=== PATIENT | male | born 1945 | race Caucasian/White ===

== ENCOUNTER → 2017-05-25 | Outpatient (CLI) | payer OTHER, MEDICARE | LOC: BHFA 09:30 | PROVIDERS: ATTEND Internal Medicine Cardiovascular Disease | DX: I48.91 Unspecified atrial fibrillation (principal); R06.02 Shortness of breath; I63.9 Cerebral infarction, unspecified | CPT/HCPCS: 78452; 93017; A9500; J2785 ==

== ENCOUNTER → 2017-07-01 | Day surgery (SDC) | payer OTHER, MEDICARE ==
[~2017-07-01] MED LIST: ATROPINE SULFATE 1 MG/10 ML SYR IVP ONE; MIDAZOLAM 2 MG/2 ML VIAL IVP ONE; NS 500 ML IV ONE; fentaNYL 100 MCG/2 ML INJ IVP ONE
--- NOTE | 2017-07-01 06:46 | CPEKG ---
Heart Rate: 34 RR Interval: 1765 P-R Interval: 196 QRSD Interval: 84 QT Interval: 524 QTC Interval: 394 P [place]: 3 QRS [place]: 84 T Wave [place]: 71 EKG Severity - BORDERLINE ECG - EKG Impression: BRADYCARDIA WITH IRREGULAR RATE 31-38 EKG Impression: LOW VOLTAGE IN FRONTAL LEADS Electronically Signed By: Jeremías Hernandez 01-Jul-2017 13:06:22
--- NOTE | 2017-07-01 08:39 | CPIP ---
[f rep st] INVASIVE CARDIAC PROCEDURE ADDENDUM TO PREVIOUSLY DICTATED REPORT The patient is leaving the hospital. He has had some food at this point in time and is getting ready to go. He does not want to wait any longer. They understand that the concept we are working on that we do not want him to faint and injure himself because of this low heart rate. Also, we are going to follow him closely to see if he has significant conduction disease on his own that would require a pacemaker, independent of the beta-zaki. /[id number]/MODL [id number] ORIGINAL REPORT DATE OF PROCEDURE: 07/01/2017 Atrial fibrillation. Procedure was cardioversion. The patient came to the hospital for an elective cardioversion this morning. When he came to the hospital, he was found to be in sinus rhythm with rates of 41 to 45, and at times he would have a junctional escape rate of 32. His medication is Toprol 50 mg daily. He has been feeling tired at home since he started the Toprol. He is obviously not in atrial fibrillation at this time. He is careful when he is changing positions. He is feeling lightheaded. He is feeling a loss of energy for the last several days. I have offered to keep him in the hospital overnight to watch him. He took his last Toprol dose last night around 7 p.m. At this point in time, he does not want to stay in the hospital. He is going to go home. We are going to feed him and watch him for another hour, have him walk around and see how he feels. His is with him and she understands the options of staying in the hospital overnight and is fine with him wanting to go home. They will take it easy this weekend, He will be very careful changing positions. He if he takes a nap or lies down, he is going to dangle his feet first for a minute and then he is going to stand up, and for a minute not walk, but stand up by the couch or by the bed and make sure he is not too lightheaded or dizzy, and then proceed to walking slowly. He is not going to exert himself. He is not going to be doing hot tubs. If he has any questions, they will come back and see us. He can come to the emergency room or call 911. He is going to call me on Tuesday morning in my office and tell them how he is feeling. If he is having ongoing troubles, we will see him. If he is improving, he will continue off the Toprol. Also, I discussed with him the future regarding his atrial fibrillation. If he goes into atrial fibrillation with a rapid ventricular response, then the future would most likely include a pacemaker so that we can continue him on drugs that will slow his atrial fibrillation and those drugs, but we will cross that bridge when we get to it. Obviously, we will need the data to know if that ever comes to pass or not, and it is not something to worry about right now. He is continuing on his full anticoagulation. All his questions have been answered. They are going to see me in 2-1/2 weeks in the office regardless. /[id number]/MODL MTDD
== END | disposition home or self-care (01) ==
LOC: FCATH 06:15
PROVIDERS: ATTEND Internal Medicine
DX: I48.91 Unspecified atrial fibrillation (principal); Z53.09 Procedure and treatment not carried out because of other contraindication

== ENCOUNTER 2017-08-10 16:03 | Inpatient (IN) | payer OTHER, MEDICARE ==
--- NOTE | 2017-08-10 16:57 | CPEKG ---
Heart Rate: 76 RR Interval: 789 P-R Interval: 216 QRSD Interval: 74 QT Interval: 400 QTC Interval: 450 QRS [place]: -75 T Wave [place]: 57 EKG Severity - ABNORMAL ECG - EKG Impression: ATRIAL-PACED COMPLEXES EKG Impression: VENTRICULAR PREMATURE COMPLEX Electronically Signed By: Ryne Murray 10-Aug-2017 17:16:44
[2017-08-10] MEDS ORDERED: NS 1,000 ML IV ONE (17:09)
--- NOTE | 2017-08-10 17:15 | EDPHY ---
H & P Stated Complaint: PACEMAKER 3 WKS AGO. WORSENING FATIGUE/DIZZINESS X 1 WK. Time Seen by Provider: 08/10/17 16:59 HPI/ROS: CHIEF COMPLAINT: Fatigue HISTORY OF PRESENT ILLNESS: The patient is a 72-year-old man with a history of atrial fibrillation on Xarelto with a [employer] pacemaker placed [address] Bennett. He reports that for the last week or so he has had increased fatigue and feels like he can sleep all of the time. No fevers. He has also had intermittent episodes of feeling dizzy and short of breath. These symptoms seem to last about an hour until he lays down to take a nap. After his nap he feels much better. He has had 2-3 of these this week. Today's episode was from 2 o'clock to 330 this afternoon. He is concerned about something being wrong with his pacemaker. He denies cough for sore throat. No abdominal pain, nausea, vomiting or diarrhea. No rashes. Denies having any history of coronary artery disease. He did have a stroke in April that he reports this completely resolved. REVIEW OF SYSTEMS: Constitutional: denies: chills, fever, recent illness, recent injury EENTM: denies: blurred vision, double vision, nose congestion Respiratory: denies: cough, shortness of breath Cardiac: denies: chest pain, irregular heart rate, lightheadedness, palpitations Gastrointestinal/Abdominal: denies: abdominal pain, diarrhea, nausea, vomiting, blood streaked stools Genitourinary: denies: dysuria, frequency, hematuria, pain Musculoskeletal: denies: joint pain, muscle pain Skin: denies: lesions, rash, jaundice, bruising Neurological: denies: headache, numbness, paresthesia, tingling, dizziness, weakness Hematologic/Lymphatic: denies: blood clots, easy bleeding, easy bruising Immunologic/allergic: denies: HIV/AIDS, transplant EXAM: GENERAL: Well-appearing, well-nourished and in no acute distress. HEAD: Atraumatic, normocephalic. EYES: Pupils equal round and reactive to light, extraocular movements intact, sclera anicteric, conjunctiva are normal. ENT: TMs normal, nares patent, oropharynx clear without exudates. Moist mucous membranes. NECK: Normal range of motion, supple without lymphadenopathy or JVD. LUNGS: Breath sounds clear to auscultation bilaterally and equal. No wheezes rales or rhonchi. HEART: Regular rate and rhythm without murmurs, rubs or gallops. ABDOMEN: Soft, nontender, normoactive bowel sounds. No guarding, no rebound. No masses appreciated. BACK: No CVA tenderness, no spinal tenderness, step-offs or deformities EXTREMITIES: Normal range of motion, no pitting or edema. No clubbing or cyanosis. NEUROLOGICAL: Cranial nerves II through XII grossly intact. Normal speech, normal gait. 5/5 strength, normal movement in all extremities, normal sensation PSYCH: Normal mood, normal affect. SKIN: Warm, dry, normal turgor, no visible rashes or lesions. 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, PACEMAKER, PROSTATE CA - Social History Smoking Status: Former smoker Constitutional: Initial Vital Signs Temperature (C) 36.8 C 08/10/17 16:05 Heart Rate 72 08/10/17 16:05 Respiratory Rate 16 08/10/17 16:05 Blood Pressure 142/77 H 08/10/17 16:05 O2 Sat (%) 91 L 08/10/17 16:05 O2 Delivery Mode Room Air Allergies/Adverse Reactions: No Known Allergies Allergy (Verified 08/10/17 16:05) Home Medications: Medication Instructions Recorded Citalopram [CeleXA 20 MG] 20 mg PO HS 03/27/10 Simvastatin [Zocor] 20 mg PO HS 03/27/10 traZODone [traZODone 150MG (*)] 450 mg PO HS PRN 03/27/10 Herbals/Supplements -Info Only 1 ea PO HS 07/21/17 Lisinopril/Hydrochlorothiazide 1 each PO HS 07/21/17 [Zestoretic 20-25 mg Tablet] Multivitamins [Multivitamin (*)] 1 each PO HS 07/21/17 Rivaroxaban [Xarelto 10mg (*)] 20 mg PO DAILY@18 07/21/17 Metoprolol Succinate Xr [Toprol Xl 50 mg PO HS 08/10/17 50 mg (*)] Medical Decision Making - Diagnostics EKG Interpretation: An EKG obtained and was read and documented in trace view. Please see trace view for full reading and report. Atrial paced rhythm with PVC, no acute ischemic changes Imaging Results: Imaging Impressions Chest X-Ray 08/10/17 17:10 Impression: 1. No active cardiopulmonary disease seen. 2. Stable fibrotic streaks or subsegmental atelectasis suspected at the lung bases. Imaging: Discussed imaging studies w/ call center operator Radiologist ED Course/Re-evaluation: The patient's lab work in x-rays are unremarkable . his pacemaker interrogation was also normal. He continues to feel fatigued. He occasionally desaturates to 85 while in bed. I suspect he may have sleep apnea. He is afebrile and does not have a white count. I recommended admission based on his symptoms. He and his agree with this plan. 7:35 p.m. the called me to the hallway in told me the patient has also been having memory problems for the last several weeks. She thinks that this predated the pacemaker and that he did have some his symptoms of lightheadedness and weakness prior to the pacemaker as well that they thought were bradycardia. She wonders if it is sequela from his stroke he had in April. He had left-sided weakness at that time that completely resolved after tPA. 7:40 p.m. I discussed the case with Dr. Bolanos who will admit. 7:45 p.m. I discussed the case with Dr. Andry Espinoza who will consult tomorrow. Differential Diagnosis: Partial list of the Differential diagnosis considered include but were not limited to; fatigue, presyncope, shortness of breath, anemia, arrhythmia and although unlikely based on the history and physical exam, I also considered infection, normal pressure hydrocephalus, anxiety, deconditioning. - Data Points Laboratory Results: Laboratory Results 08/10/17 17:32 08/10/17 17:32 08/10/17 08/10/17 08/10/17 18:44 18:30 17:32 WBC RBC Hgb Hct MCV MCH MCHC RDW Plt Count MPV Neut % (Auto) Lymph % (Auto) [place] % (Auto) Eos % (Auto) Baso % (Auto) Nucleat RBC Rel Count Absolute Neuts (auto) Absolute Lymphs (auto) Absolute Monos (auto) Absolute Eos (auto) Absolute Basos (auto) Absolute Nucleated RBC Immature Gran % Immature Gran # PT INR APTT D-Dimer VBG Lactic Acid Sodium Potassium Chloride Carbon Dioxide Anion Gap BUN Creatinine Estimated GFR Glucose Calcium Total Bilirubin Conjugated Bilirubin Unconjugated Bilirubin AST ALT Alkaline Phosphatase POC Troponin I 0.00 ng/mL ng/mL (0.00-0.08) Total Protein Albumin Lipase TSH 2.950 uIU/mL uIU/mL (0.465-4.680) Urine Color YELLOW Urine Appearance CLEAR Urine pH 5.0 (5.0-7.5) Ur Specific [place] 1.016 (1.002-1.030) Urine Protein NEGATIVE (NEGATIVE) Urine Ketones NEGATIVE (NEGATIVE) Urine Blood NEGATIVE (NEGATIVE) Urine Nitrate NEGATIVE (NEGATIVE) Urine Bilirubin NEGATIVE (NEGATIVE) Urine Urobilinogen NEGATIVE EU EU (0.2-1.0) Ur Leukocyte Esterase NEGATIVE (NEGATIVE) Urine Glucose NEGATIVE (NEGATIVE) 08/10/17 08/10/17 08/10/17 17:32 17:32 17:32 WBC RBC Hgb Hct MCV MCH MCHC RDW Plt Count MPV Neut % (Auto) Lymph % (Auto) [place] % (Auto) Eos % (Auto) Baso % (Auto) Nucleat RBC Rel Count Absolute Neuts (auto) Absolute Lymphs (auto) Absolute Monos (auto) Absolute Eos (auto) Absolute Basos (auto) Absolute Nucleated RBC Immature Gran % Immature Gran # PT 14.5 SEC SEC (12.0-15.0) INR 1.11 (0.83-1.16) APTT 30.8 SEC SEC (23.0-38.0) D-Dimer 0.37 ug/mLFEU ug/mLFEU (0.00-0.50) VBG Lactic Acid 1.2 mmol/L mmol/L (0.7-2.1) Sodium 139 mEq/L mEq/L (135-145) Potassium 4.0 mEq/L mEq/L (3.3-5.0) Chloride 97 mEq/L mEq/L (97-110) Carbon Dioxide 32 mEq/l H mEq/l (22-31) Anion Gap 10 mEq/L mEq/L (8-16) BUN 14 mg/dL mg/dL (7-23) Creatinine 0.9 mg/dL mg/dL (0.7-1.3) Estimated GFR > 60 Glucose 83 mg/dL mg/dL (70-100) Calcium 9.5 mg/dL mg/dL (8.5-10.4) Total Bilirubin 0.6 mg/dL mg/dL (0.1-1.4) Conjugated Bilirubin 0.4 mg/dL mg/dL (0.0-0.5) Unconjugated Bilirubin 0.2 mg/dL mg/dL (0.0-1.1) AST 30 IU/L IU/L (17-59) ALT 46 IU/L IU/L (21-72) Alkaline Phosphatase 46 IU/L IU/L (38-126) POC Troponin I Total Protein 7.0 g/dL g/dL (6.3-8.2) Albumin 4.0 g/dL g/dL (3.5-5.0) Lipase 139 IU/L IU/L (23-300) TSH Urine Color Urine Appearance Urine pH Ur Specific [place] Urine Protein Urine Ketones Urine Blood Urine Nitrate Urine Bilirubin Urine Urobilinogen Ur Leukocyte Esterase Urine Glucose 08/10/17 17:32 WBC 6.24 10^3/uL 10^3/uL (3.80-9.50) RBC 5.58 10^6/uL 10^6/uL (4.40-6.38) Hgb 16.7 g/dL g/dL (13.7-17.5) Hct 50.5 % % (40.0-51.0) MCV 90.5 fL fL (81.5-99.8) MCH 29.9 pg pg (27.9-34.1) MCHC 33.1 g/dL g/dL (32.4-36.7) RDW 13.6 % % (11.5-15.2) Plt Count 257 10^3/uL 10^3/uL (150-400) MPV 10.3 fL fL (8.7-11.7) Neut % (Auto) 57.6 % % (39.3-74.2) Lymph % (Auto) 24.5 % % (15.0-45.0) [place] % (Auto) 13.3 % H % (4.5-13.0) Eos % (Auto) 3.8 % % (0.6-7.6) Baso % (Auto) 0.5 % % (0.3-1.7) Nucleat RBC Rel Count 0.0 % % (0.0-0.2) Absolute Neuts (auto) 3.59 10^3/uL 10^3/uL (1.70-6.50) Absolute Lymphs (auto) 1.53 10^3/uL 10^3/uL (1.00-3.00) Absolute Monos (auto) 0.83 10^3/uL H 10^3/uL (0.30-0.80) Absolute Eos (auto) 0.24 10^3/uL 10^3/uL (0.03-0.40) Absolute Basos (auto) 0.03 10^3/uL 10^3/uL (0.02-0.10) Absolute Nucleated RBC 0.00 10^3/uL 10^3/uL (0-0.01) Immature Gran % 0.3 % % (0.0-1.1) Immature Gran # 0.02 10^3/uL 10^3/uL (0.00-0.10) PT INR APTT D-Dimer VBG Lactic Acid Sodium Potassium Chloride Carbon Dioxide Anion Gap BUN Creatinine Estimated GFR Glucose Calcium Total Bilirubin Conjugated Bilirubin Unconjugated Bilirubin AST ALT Alkaline Phosphatase POC Troponin I Total Protein Albumin Lipase TSH Urine Color Urine Appearance Urine pH Ur Specific [place] Urine Protein Urine Ketones Urine Blood Urine Nitrate Urine Bilirubin Urine Urobilinogen Ur Leukocyte Esterase Urine Glucose Microbiology Results: MICROBIOLOGY 08/10/17 19:15 Nasal, Sinus - Swab Respiratory Panel (PCR) - Final No Organism Detected Medications Given: Atorvastatin Calcium (Lipitor) 10 mg PO HS [facility] Stop: 02/06/18 20:59 Last Admin: 08/10/17 21:39 Dose: 10 mg Citalopram Hydrobromide (Celexa) 20 mg PO HS [facility] Stop: 02/06/18 20:59 Last Admin: 08/10/17 21:39 Dose: 20 mg Lisinopril/HCTZ (Zestoretic) 1 ea PO HS [facility] Stop: 02/06/18 20:59 Last Admin: 08/10/17 21:39 Dose: 1 ea Hydrochlorothiazide (Microzide) 12.5 mg PO [facility] Stop: 02/06/18 20:59 Last Admin: 08/10/17 21:40 Dose: 12.5 mg Metoprolol Succinate (Toprol Xl) 50 mg PO HS [facility] Stop: 02/06/18 20:59 Last Admin: 08/10/17 21:39 Dose: 50 mg Multivitamins (Tab-A-Ryann) 1 each PO [facility] Stop: 02/06/18 20:59 Last Admin: 08/10/17 21:39 Dose: 1 each Discontinued Medications Furosemide (Lasix Injection) 20 mg IVP ONCE ONE Stop: 08/10/17 21:32 Last Admin: 08/10/17 21:44 Dose: 20 mg Sodium Chloride (Ns) 1,000 mls @ 0 mls/hr IV EDNOW ONE; Wide Open PRN Reason: Protocol Stop: 08/10/17 17:10 Last Admin: 08/10/17 17:38 Dose: 1,000 mls Point of Care Test Results: Chemistry 08/10/17 18:44 POC Troponin I 0.00 ng/mL ng/mL (0.00-0.08) Departure - Departure Disposition: [facility] Inpatient Acute Clinical Impression: Pre-syncope, Shortness of breath Fatigue Qualifiers: Fatigue type: unspecified Qualified Code(s): R53.83 - Other fatigue Condition: Fair
[2017-08-10 17:47] LABS: PLATELET COUNT 257 10^3/uL (150-400)
[2017-08-10 18:15] LABS: INR 1.11 (0.83-1.16); PROTIME(PATIENT) 14.5 SEC (12.0-15.0)
[2017-08-10] MEDS ORDERED: ALBUTEROL 3 ML DEYVIAL IH PRN (20:58)
[2017-08-10] MEDS ORDERED: ACETAMINOPHEN 325 MG TAB PO PRN (20:58)
[2017-08-10] MEDS ORDERED: ONDANSETRON DISINTEGRATING 4 MG TAB PO PRN (20:58)
[2017-08-10] MEDS ORDERED: ONDANSETRON 4 MG/2 ML VIAL IVP PRN (20:58)
[2017-08-10] MEDS ORDERED: METOPROLOL SUCCINATE XR 50 MG TAB PO SCH (21:00)
[2017-08-10] MEDS ORDERED: FUROSEMIDE 20 MG/2 ML VIAL IVP ONE (21:31)
[2017-08-10] MEDS: CITALOPRAM 20 MG TAB PO SCH (21:39)
[2017-08-10] MEDS: MULTIVITAMINS 1 EACH TAB PO SCH (21:39)
[2017-08-10] MEDS: LISINOPRIL/HCTZ 20/12.5MG 1 EA TAB PO SCH (21:39)
[2017-08-10] MEDS: ATORVASTATIN CALCIUM 10 MG TAB PO SCH (21:39)
--- NOTE | 2017-08-10 21:39 | PDGENHP ---
History and Physical - Chief Complaint SOB, fatigue - History of Present Illness The patient is a 72-year-old man with a history of atrial fibrillation on Xarelto with a [employer] pacemaker placed [address] Bennett. He reports that for the last week or so he has had increased fatigue and feels like he can sleep all of the time. No fevers. He has also had intermittent episodes of feeling dizzy and short of breath. These symptoms seem to last about an hour until he lays down to take a nap. After his nap he feels much better. He has had 2-3 of these this week. He is concerned about something being wrong with his pacemaker. He says he feels palpitations. Today while being transported from the E.D. he noted his HR to be in the 150's. He denies cough for sore throat. No abdominal pain, nausea , vomiting or diarrhea. No rashes. Denies having any history of coronary artery disease. He did have a stroke in April that he reports this completely resolved. He also complaints of being SOB and having increased O2 needs. He denies leg swelling. He denies chest pain. He says he feels dizzy intermittently. He checked his BP today during a dizzy spell and his BP was in the 150's systolic. 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, PACEMAKER , PROSTATE CA SocHx: History Information - Allergies/Home Medication List Allergies/Adverse Reactions: No Known Allergies Allergy (Verified 08/10/17 16:05) Home Medications: Citalopram [CeleXA 20 MG] 20 mg PO HS 03/27/10 [Last Taken 08/09/17] Simvastatin [Zocor] 20 mg PO HS 03/27/10 [Last Taken 08/09/17] traZODone [traZODone 150MG (*)] 450 mg PO HS PRN 03/27/10 [Last Taken 08/09/17] Herbals/Supplements -Info Only 1 ea PO HS 07/21/17 [Last Taken 08/09/17] Lisinopril/Hydrochlorothiazide [Zestoretic 20-25 mg Tablet] 1 each PO HS [Last Taken 08/09/17] Multivitamins [Multivitamin (*)] 1 each PO HS 07/21/17 [Last Taken 08/09/17] Rivaroxaban [Xarelto 10mg (*)] 20 mg PO DAILY@18 07/21/17 [Last Taken 08/09/17] Metoprolol Succinate Xr [Toprol Xl 50 mg (*)] 50 mg PO HS 08/10/17 [Last Taken 08/09/17] I have personally reviewed and updated: medical history, social history - Social History Smoking Status: Former smoker Review of Systems Review of Systems: ROS: 10pt was reviewed & negative except for what was stated in HPI & below Physical Exam Physical Exam: Temp Pulse Resp BP Pulse Ox 36.6 C 85 17 157/92 H 92 08/10/17 20:47 08/10/17 20:47 08/10/17 20:47 08/10/17 20:47 08/10/17 20:47 O2 (L/minute) 2 Constitutional: no apparent distress, appears nourished Eyes: PERRL, EOMI Ears, Nose, Mouth, Throat: moist mucous membranes, hearing normal Cardiovascular: regular rate and rhythym, edema (trace to 1+ LE edema) Respiratory: reduced air movement Gastrointestinal: normoactive bowel sounds, soft, non-tender abdomen Skin: warm Musculoskeletal: full muscle strength Neurologic: AAOx3 Psychiatric: interacting appropriately, not anxious, not encephalopathic Lab Data & Imaging Review 08/10/17 17:32 08/10/17 17:32 WBC 6.24 10^3/uL (3.80-9.50) 08/10/17 17:32 RBC 5.58 10^6/uL (4.40-6.38) 08/10/17 17:32 Hgb 16.7 g/dL (13.7-17.5) 08/10/17 17:32 Hct 50.5 % (40.0-51.0) 08/10/17 17:32 MCV 90.5 fL (81.5-99.8) 08/10/17 17:32 MCH 29.9 pg (27.9-34.1) 08/10/17 17:32 MCHC 33.1 g/dL (32.4-36.7) 08/10/17 17:32 RDW 13.6 % (11.5-15.2) 08/10/17 17:32 Plt Count 257 10^3/uL (150-400) 08/10/17 17:32 MPV 10.3 fL (8.7-11.7) 08/10/17 17:32 Neut % (Auto) 57.6 % (39.3-74.2) 08/10/17 17:32 Lymph % (Auto) 24.5 % (15.0-45.0) 08/10/17 17:32 Sac % (Auto) 13.3 % (4.5-13.0) H 08/10/17 17:32 Eos % (Auto) 3.8 % (0.6-7.6) 08/10/17 17: Baso % (Auto) 0.5 % (0.3-1.7) 08/10/17: Nucleat RBC Rel Count 0.0 % (0.0-0.2) 08/10/17: Absolute Neuts (auto) 3.59 10^3/uL (1.70-6.50) 08/10/17 17:32 Absolute Lymphs (auto) 1.53 10^3/uL (1.00-3.00) 08/10/17 17:32 Absolute Monos (auto) 0.83 10^3/uL (0.30-0.80) H 08/10/17 17:32 Absolute Eos (auto) 0.24 10^3/uL (0.03-0.40) 08/10/17 17: Absolute Basos (auto) 0.03 10^3/uL (0.02-0.10) 08/10/17 17: Absolute Nucleated RBC 0.00 10^3/uL (0-0.01) 08/10/17: Immature Gran % 0.3 % (0.0-1.1) 08/10/17: Immature Gran # 0.02 10^3/uL (0.00-0.10) 08/10/17: PT 14.5 SEC (12.0-15.0) 08/10/17 17: INR 1.11 (0.83-1.16) 08/10/17: APTT 30.8 SEC (23.0-38.0) 08/10/17: D-Dimer 0.37 ug/mLFEU (0.00-0.50) 08/10/17 17:32 VBG Lactic Acid 1.2 mmol/L (0.7-2.1) 08/10/17 17:32 Sodium 139 mEq/L (135-145) 08/10/17 17:32 Potassium 4.0 mEq/L (3.3-5.0) 08/10/17 17:32 Chloride 97 mEq/L (97-110) 08/10/17 17:32 Carbon Dioxide 32 mEq/l (22-31) H 08/10/17 17:32 Anion Gap 10 mEq/L (8-16) 08/10/17 17:32 BUN 14 mg/dL (7-23) 08/10/17 17:32 Creatinine 0.9 mg/dL (0.7-1.3) 08/10/17 17:32 Estimated GFR > 60 08/10/17 17:32 Glucose 83 mg/dL (70-100) 08/10/17 17:32 Calcium 9.5 mg/dL (8.5-10.4) 08/10/17 17:32 Total Bilirubin 0.6 mg/dL (0.1-1.4) 08/10/17 17:32 Conjugated Bilirubin 0.4 mg/dL (0.0-0.5) 08/10/17 17:32 Unconjugated Bilirubin 0.2 mg/dL (0.0-1.1) 08/10/17 17:32 AST 30 IU/L (17-59) 08/10/17 17:32 ALT 46 IU/L (21-72) 08/10/17 17:32 Alkaline Phosphatase 46 IU/L (38-126) 08/10/17 17:32 POC Troponin I 0.00 ng/mL (0.00-0.08) 08/10/17 18:44 Total Protein 7.0 g/dL (6.3-8.2) 08/10/17 17:32 Albumin 4.0 g/dL (3.5-5.0) 08/10/17 17:32 Lipase 139 IU/L (23-300) 08/10/17 17:32 TSH 2.950 uIU/mL (0.465-4.680) 08/10/17 17:32 Urine Color YELLOW 08/10/17 18:30 Urine Appearance CLEAR 08/10/17 18:30 Urine pH 5.0 (5.0-7.5) 08/10/17 18:30 Ur Specific [place] 1.016 (1.002-1.030) 08/10/17 18:30 Urine Protein NEGATIVE (NEGATIVE) 08/10/17 18:30 Urine Ketones NEGATIVE (NEGATIVE) 08/10/17 18:30 Urine Blood NEGATIVE (NEGATIVE) 08/10/17 18:30 Urine Nitrate NEGATIVE (NEGATIVE) 08/10/17 18:30 Urine Bilirubin NEGATIVE (NEGATIVE) 08/10/17 18:30 Urine Urobilinogen NEGATIVE EU (0.2-1.0) 08/10/17 18:30 Ur Leukocyte Esterase NEGATIVE (NEGATIVE) 08/10/17 18:30 Urine Glucose NEGATIVE (NEGATIVE) 08/10/17 18:30 Assessment & Plan Assessment: #Query CHF? #Pedal Edema #Dyspnea and Hypoxemia #Fatigue #PPM #chronic AC #HTN #Recent Stroke Plan: IV diuretics tonigh He will likely need more in a.m. His BP appears to be ok, but he is on a number of agents, will check orthostatics cont Xarelto Optimize nutrition, nutrition counseling (the patient seen eating a [employer] fountain cheeseburger upon entering room) Cards to see. He has multiple questions and concerns bout pacemaker malfunctioning Full code
[2017-08-10] MEDS: HYDROCHLOROTHIAZIDE 12.5 MG CAP PO SCH (21:40)
[2017-08-11 04:08] LABS: PLATELET COUNT 255 10^3/uL (150-400)
--- NOTE | 2017-08-11 12:44 | HOSPPROG ---
Hospitalist Progress Note Assessment/Plan: DIAGNOSES: # Fatigue, dyspnea, lightheaded spells of unclear etiology # Intermittent hypoxemia at rest here, history of waking up gasping for air during sleep at home, and obesity, suggesting high likelihood of obesity hypoventilation syndrome and sleep apnea * Notably there is an increased CO2 on his chemistry # Recent pacemaker placement, pacemaker working well # History of atrial fibrillation, did not tolerate beta-zaki so was not on rate control medicines so far * Awaiting pacer interrogation to see has been having any spells of rapid AFib * Currently on monitor here he is in a paced rhythm with both ventricular and atrial pacing evident PLANS: Await echocardiogram results and looking for possible pulmonary hypertension Await final pacemaker interrogation to see if he has had any rapid AFib lately Will likely need referral for assessment of hypoventilation syndrome and sleep apnea I reviewed in detail with Dr. 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, my review: Paced rhythm with few PVCs, with some atrial pacing and some periods where there appears to be sinus rhythm driven ventricular pacing indicating AV conduction issue Exam: alert oriented He is fairly obese with body mass index 38 skin warm dry color ok resps not labored lungs diminished but clear BSs heart regular abd soft nondistended nontender, bowel sounds present limbs warm, no edema iv site ok Troponin undetectable TSH normal CO2 is elevated at 32 and serum chemistry which is otherwise unremarkable I reviewed yesterday's 12 lead EKG and chest x-ray images both which are unremarkable other than his pacer which appears to be functioning Objective: Vital Signs Temp Pulse Resp BP Pulse Ox 36.7 C 72 15 149/86 H 90 L 08/11/17 12:00 08/11/17 12:00 08/11/17 12:00 08/11/17 12:00 08/11/17 12:00 Laboratory Results 08/11/17 03:11 08/11/17 03:11 08/10/17 08/11/17 08/12/17 06:59 06:59 06:59 Intake Total 1400 Output Total 1400 650 Balance 0 -650 PT 14.5 SEC (12.0-15.0) 06/20/18 17:32 INR 1.11 (0.83-1.16) 08/10/17 17:32 ICD10 Worksheet Patient Problems: Problems Problem Status Onset Fatigue Acute Pre-syncope Acute Shortness of breath Acute
--- NOTE | 2017-08-11 13:10 | GCON ---
[f rep st] CONSULTATION CARDIOLOGY CONSULTATION The patient is admitted to the hospital with feeling tired. The patient has a history of a stroke in the past and that occurred 05/01/2017. He completely recove red from that probably in less than 24 hours, but it is a little unclear exactly what the timing is. At that time he had left arm and hand weakness, the left leg was okay, but he could not speak well. That eventually went completely away. He was found to have atrial fibrillation. He was watched for that. And he developed a low heart rate, so a pacemaker was placed on 07/21/2017. After the pacemaker he felt very good. He could do all the things he wanted to do, he had no limita tions and felt stronger than he had for quite a while; but last week he started raking some hay, and he felt tired and worn out. When he had atrial fibrillation he was given metoprolol, and he turned o ut to develop extreme fatigue on that drug and he has never gotten better even though he stopped the drug 6 weeks ago. So, I think some of his symptoms may just be related to what that drug did to him. He is feeling exhausted, he is wiped out altogether, arms and legs just really tired. He can go to b ed at 8 o'clock at night, sleep until 11:30 the next morning and still be exhausted. All 4 extremiti es are tired, it is not just one side or one arm. He has had no recurrent stroke symptoms of his left arm or hand issues. He has had no further troubl e with his speech. He himself has a history of hypertension and obesity and dyslipidemia for cardiac risk factors. His cardiac risk factors are negative for diabetes, hyperuricemia, smoking, known coronary disease and fa jesse history of premature coronary disease. He has no orthopnea, PND, dyspnea on exertion. No pleuritic chest pain. No fever, chills, cough. N o near syncope. No syncope. He has had no pleuritic chest pain. He has no peripheral edema. He is trying to be active, but just for the last week to 10 days he has been so weak and tired he has not been able to do all the things he wants to do. The patient does have a cardiac history of atrial fibrillation, and he has been on blood thinners. Past medical history and medications are listed in the chart. ALLERGIES: None known. SURGICAL HISTORY: Listed in the chart. REVIEW OF SYSTEMS: 10-point review of systems negative except as noted above. FAMILY HISTORY: He has no family history of premature coronary artery disease. No history of unexpl ained sudden at a young age. SOCIAL HISTORY: He was born at [facility]. He lives with his . 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 He is a big, strong man who is active. He does not smoke. He does not drink significant amounts of alcohol. 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 PHYSICAL EXAMINATION: VITALS: His blood pressure is 137/70, heart rate 72, respiratory rate 12. GE NERAL: He is sitting comfortably in a hospital bed. HEENT: Pupils equal and reactive. Mucous memb ranes and mouth moist. NECK: Supple. CARDIOVASCULAR: S1, S2. Soft systolic murmur left sternal b order. No diastolic murmur. No S3, S4. No rubs. PULMONARY: Rhonchi. No rales, wheezing or dulln ess. ABDOMEN: Soft, nontender, without masses. CVA: No tenderness. EXTREMITIES: No edema, infla mmation or ulceration. NEURO: Cranial nerves 2-12 grossly normal. Motor and sensory intact. He is weak and he is tired. Hematocrit 50. Sed rate 15. PSA screen 0.1. Sodium 142, potassium 4.2, chloride 99, CO2 32, BUN 15 , creatinine 0.9, glucose 82. White count 6.5, hematocrit 50. TSH is 2.9. PSA, just discussed. Lipase is normal. Chest x-ray is unremarkable except for some possible atelectasis at the bases. EKG has atrial paced complexes. PROBLEMS: 1. Fatigue. a. The cause of his fatigue is not at all clear. b. Will do a stress test. c. We will repeat his echocardiographic study. d. There is nothing to suggest an acute coronary syndrome or heart failure at this moment, but we wi ll watch and him. We will watch very carefully. He is worried about the pacemaker is not functionin g well, so we have asked the pacemaker company to come and interrogate things. e. He has no focal neurologic deficits. We do not see anything discussed for his elevated hematocri t that is really abnormal in his metabolic profile. There is nothing to suggest a tumor or other iss ues right now. f. So we will follow along with him. 2. Status post pacemaker. 3. Atrial fibrillation. a. He needs full anticoagulation. b. He has been maintained on rivaroxaban and has not had any trouble with that. c. He is taking his simvastatin and his lisinopril/hydrochlorothiazide, metoprolol, and having no pr oblems with those medications. d. He is currently stable. He is not in atrial fibrillation. 4. Hypertension. 5. Hyperlipidemia. He has significant risk factors for coronary artery disease including obesity, and we have discussed prevention and will continue to go over that. We will watch him closely with you during this hospitalization. So far, there is nothing acute that is coming to the forefront. Thank you very much for asking us to see this complex gentleman. /[id number]/MODL
--- NOTE | 2017-08-11 13:30 | ASMTCASEMG ---
Living Arrangements What is your living Answers: With Spouse arrangement? Who do you live with? Type Of Residence What kind of residence do Answers: House you live in? Discharge Plan Comments Coordination Status Comments Notes: Pts case discussed in morning rounds. Pt is a 72 y/o man admitted for fatigue, presyncope and SOB. OT has been ordered and awaiting recommendations. Pt will most likely d/c without any needs when medically stable. CM available for changes. Plan: Independent Date Signed: 08/11/2017 01:29 PM Electronically Signed By:CHET Villalobos
[2017-08-11] MEDS ORDERED: RIVAROXABAN 20 MG TAB PO SCH (18:00)
[2017-08-11] MEDS: LISINOPRIL/HCTZ 20/12.5MG 1 EA TAB PO SCH (20:47)
[2017-08-11] MEDS: CITALOPRAM 20 MG TAB PO SCH (20:48)
[2017-08-11] MEDS: HYDROCHLOROTHIAZIDE 12.5 MG CAP PO SCH (20:48)
[2017-08-11] MEDS: ATORVASTATIN CALCIUM 10 MG TAB PO SCH (20:48)
[2017-08-11] MEDS: MULTIVITAMINS 1 EACH TAB PO SCH (20:48)
[2017-08-12] MEDS ORDERED: REGADENOSON 0.4 MG/5 ML SYR IVP ONE (09:53)
--- NOTE | 2017-08-12 11:17 | PDMN ---
Medical Necessity Medical necessity: Change to IP, as of 08/12/17, per MD; los >2 mn for ongoing management of suspected cardiogenic failure w/fatigue, dyspnea & lightheaded spells; admit for Cardiology consult & further workup/monitoring; hx recent pacemaker placement, AFIB on AC, HTN, CVA & prostate cancer; per progress note & order 08/12/17
[2017-08-12 11:45] VITALS: BP 167/104
--- NOTE | 2017-08-12 13:36 | CPR ---
[f rep st] NONINVASIVE CARDIAC PROCEDURE REPORT DATE OF PROCEDURE: 08/12/2017 PROCEDURE: Lexiscan Nuclear Stress Test. ORDERING PHYSICIAN: Dr. Edis Fox. REASON FOR PROCEDURE: Chest pain. Resting EKG shows an atrial paced rhythm with left posterior fascicular block with a heart rate of 74 , resting blood pressure 128/80, oxygen saturation 98%. He is asymptomatic. Stress portion: Lexiscan was injected rapidly, followed by saline flush. Cardiolite was then injected, followed by s marisela flush. He remained asymptomatic throughout the infusion. Blair he did feel flushing. His pe ak blood pressure was 140/80, heart rate 74, oxygen saturation 91%. EKG remained stable. Recovery: He did spontaneously recover with resting recovery blood pressure 130/80, oxygen saturation 91%, and heart rate 74. Flushing subsided. At this time he currently is stable for nuclear imaging. /[id number]/MODL
--- NOTE | 2017-08-12 15:36 | SOAPPROG ---
[facility] Progress Note Assessment/Plan: Assessment: 1. Extreme tiredness 2. Dyslipidemia 3. Fatigue 4. Pacemaker His pacemaker function is excellent. He is having no significant arrhythmias. His fatigue is above bother him and we are not sure the cause of that. Is not associated with any significant cardiovascular GI pulmonary collagen vascular or neurologic positive symptoms. He is going to work this up with his primary care doctor. He says he is feeling better after several days rest. He had a nuclear stress test 05/25/2017 in the office that was negative. His nuclear stress test today showed a small area of decreased flow with stress that was normal with exercise. He has no coronary artery disease symptoms whatsoever. This was not a moderate or high risk stress test. I will see him in clinic and we will follow along and see how he does he does not have chest pain chest tightness jaw pain arm pain. He does not have any symptoms that occur with exertion or other get better with rest he has no symptoms that are caused by stress. So he is going to be followed up as an outpatient. He told me he was very eager to get home and wants to go there and he will see me any time he deteriorates otherwise I will see him in less than a weeks time. They will come back if he has new symptoms or persistent symptoms or develops chest pains. Plan: 08/12/17 15:35 08/12/17 15:59 Subjective: He feels well today He does not have any chest pain He has not had any chest pain at all He has no shortness of breath. He is just tired His tiredness is improving. He was admitted to the hospital and came to the hospital because he thought his pacemaker was not functioning well. His pacemaker function is excellent. He has not had any significant pathologic arrhythmias. He has no peripheral edema. He has no nausea vomiting He has no fevers or chills Objective: Vital Signs Temp Pulse Resp BP Pulse Ox 36.5 C 70 15 167/104 H 90 L 08/12/17 11:43 08/12/17 11:43 08/12/17 11:43 08/12/17 11:43 08/12/17 11:43 PT 14.5 SEC (12.0-15.0) 08/10/17 17:32 INR 1.11 (0.83-1.16) 06/20/18 17:32 Physical Exam - Physical Exam General Appearance: alert Neck: full range of motion Respiratory: lungs clear, rhonchi Cardiac/Chest: regular rate, rhythm, No edema Abdomen: non-tender, soft Skin: warm/dry, No pallor Neuro/Psych: alert, normal mood/affect ICD10 Worksheet Patient Problems: Problems Problem Status Onset Fatigue Acute Pre-syncope Acute Shortness of breath Acute
--- NOTE | 2017-08-12 17:54 | PDDCSUM ---
Discharge Summary Discharge Summary: DISCHARGE SUMMARY FOLLOW-UP ITEMS: Please arrange outpatient sleep study DATE OF ADMISSION: 08/10/2017 DATE OF DISCHARGE: 08/12/2017 DISCHARGE DIAGNOSES: 1. Acute fatigue 2. Suspected obstructive sleep apnea and suspected obesity hypoventilation syndrome 3. Paroxysmal atrial fibrillation 4. Chronic coronary artery disease CONSULTATIONS: Cardiology PROCEDURES / IMAGING: Nuclear medicine stress test demonstrating focal left ventricular apex ischemia , echocardiogram reportedly unremarkable CHIEF COMPLAINT: Acute fatigue SUBJECTIVE: Patient is feeling well at time discharge, he is requesting to be discharged PHYSICAL EXAM ON DISCHARGE: Systolic blood pressure is 120-150, heart rate 70-80, afebrile overnight, satting on room air, alert awake oriented x3, lungs are clear to auscultation bilaterally without any inspiratory crackles or expiratory wheezes, heart rhythm is regular, no significant lower extremity edema LABS ON DISCHARGE: ESR 15, D-dimer unremarkable, creatinine 0.9, respiratory viral panel negative, TSH 2.6, PSA 0.1, urinalysis unremarkable HOSPITAL COURSE BY PROBLEM: The patient presented for acute generalized fatigue any underwent extensive cardiovascular workup given his history of recent cardiac stent and known coronary artery disease as well as atrial fibrillation and sick sinus syndrome resulting in a recent permanent pacemaker placement. The patient's interrogation did not demonstrate any evidence of rapid AFib, and his telemetry monitoring demonstrated normal sinus rhythm with intermittently paced rhythm. His echocardiogram was reportedly normal and per Cardiology recommendations, the patient did undergo a nuclear medicine stress test to ensure that he did not have extensive areas of ischemia following his recent catheterization and stent placement. The patient did have a small area of focal ischemia at the left ventricular apex, which was location corresponding to an area of known defect and risk based on his last catheterization. Per my discussion with Dr. Jaiden Fox, he did not believe that further cardiac catheterization was indicated given that this was a known territory for the patient and unlikely to be causing his generalized fatigue symptoms. All other lab workup was unremarkable for a precise etiology of his fatigue, and I highly suspect that the patient's fatigue may be somewhat multifactorial, likely related to his undiagnosed and untreated suspected sleep apnea as well as obesity hypoventilation syndrome and his excessive use of trazodone as a sleep aid. The patient uses 450 mg nightly of trazodone, and I have advised him to cut this back to 150 mg nightly, and to continue to work with his primary care provider regarding sleep hygiene and scheduling his outpatient sleep study as soon as possible. Of note, the patient has also recently discontinued his beta- zaki to remove this is a potentially contributing factor, and the patient is currently not on any marti blocking agents moving forward for his atrial fibrillation, but does remain on systemic anticoagulation. DISCHARGE MEDICATIONS: Please see official discharge medication reconciliation sheet in chart , continue all home medications with the discontinuation of metoprolol as an outpatient and the reduction of trazodone from 450 mg to 150 mg nightly. DISCHARGE INSTRUCTIONS: Please follow up with primary care provider next week, schedule outpatient sleep study, follow up with Dr. Edis Fox thereafter. TIME SPENT: Greater than 30 minutes were spent on direct patient care, as well as discharge planning and preparation.
== END 2017-08-12 15:27 | disposition home or self-care (01) | DRG 948 ==
LOC: F2W 20:28 → OBSVTOIN 08-12 08:32
PROVIDERS: ADMIT Family Medicine; ATTEND Family Medicine
DX: R53.83 Other fatigue (principal); E66.2 Morbid (severe) obesity with alveolar hypoventilation; I48.0 Paroxysmal atrial fibrillation; I25.10 Atherosclerotic heart disease of native coronary artery without angina pectoris; I10 Essential (primary) hypertension; E78.5 Hyperlipidemia, unspecified; Z85.46 Personal history of malignant neoplasm of prostate; Z95.0 Presence of cardiac pacemaker
CPT/HCPCS: 84484-PO; 97165-GO; A9500; G0103; G0378; G8987-GO-CI; G8988-GO-CI; G8989-GO-CI; J1940; J2785

== ENCOUNTER 2017-08-21 11:20 | Observation (INO) | payer OTHER, MEDICARE ==
--- NOTE | 2017-08-21 11:32 | CPEKG ---
Heart Rate: 134 RR Interval: 448 QRSD Interval: 74 QT Interval: 316 QTC Interval: 472 QRS Williamson: 265 T Wave Williamson: 72 EKG Severity - ABNORMAL ECG - EKG Impression: ATRIAL FIBRILLATION, V-RATE 119-152 EKG Impression: VENTRICULAR PREMATURE COMPLEX EKG Impression: LEFT ANTERIOR FASCICULAR BLOCK EKG Impression: LOW VOLTAGE IN FRONTAL LEADS Electronically Signed By: Carol Sood 21-Aug-2017 15:13:36
[2017-08-21 12:48] LABS: PLATELET COUNT 236 10^3/uL (150-400)
[2017-08-21] MEDS ORDERED: DILTIAZEM 25 MG/5 ML VIAL IVP ONE (12:58)
--- NOTE | 2017-08-21 14:11 | EDPHY ---
H & P Stated Complaint: hx afib/pacemaker placed in june for gail/now with irregular hr Time Seen by Provider: 08/21/17 11:32 HPI/ROS: CHIEF COMPLAINT: Rapid heart rate HISTORY OF PRESENT ILLNESS: This is a 72-year-old male who presents complaining that he is in atrial fibrillation. He has a history of paroxysmal atrial fibrillation and is on Xarelto. He was scheduled to undergo cardioversion for his atrial fibrillation on July 01. He had been placed on Toprol prior to that. When he presented for his cardioversion he was in a sinus bradycardia. The Toprol was discontinued and on July 21 [facility] biventricular pacemaker was placed. He did relatively well following that procedure but was readmitted on August 10 complaining of shortness of breath and fatigue. During that admission see was seen by the Cardiology service and underwent a nuclear medicine stress test that demonstrated focal left ventricular apex ski [place]. An echo cardiogram was unremarkable. It was recommended that he undergo an outpatient sleep study. He has been doing well at home until last night. The patient tells me that last night, around 6:30 p.m. while dining, he developed a rapid heart rate that has persisted. He denies shortness of breath or chest pain. He is not currently feeling dizzy. He has been compliant with his medications. REVIEW OF SYSTEMS: A ten point review of systems was performed and is negative with the exception of the items mentioned in the HPI. Past medical history: 1. Paroxysmal atrial fibrillation 2. Sinus bradycardia with pacemaker placed on 07/21/2017 3. Hypertension 4. Hyperlipidemia 5. Prostate cancer 6. 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 He works as a rancher. General Appearance: Alert. Vital signs reviewed. Initial blood pressure 92/ 76. Eyes: Pupils equal and round, no conjunctival injection, no discharge. Anicteric. ENT, Mouth: Mucous membranes are moist, no oropharyngeal erythema or edema. Neck: No lymphadenopathy, supple. No JVD. Respiratory: Lungs are clear to auscultation; no wheezes, rales, or rhonchi. Cardiovascular: Irregularly irregular; no murmur, rub, or gallop. Gastrointestinal: Abdomen is soft and nontender, no masses or organomegaly, bowel sounds normal. Skin: Warm and dry, no rashes on exposed skin, normal color. Back: Nontender to palpation over the thoracolumbar spine. No CVAT. Extremities: No lower extremity edema, no calf tenderness or swelling. Neurological: Alert and oriented. Moving all four extremities easily and equally. Facial expressions symmetric. Tongue midline. MAT. EOMI. Psychiatric: Normal affect. - Personal History Current Tetanus Diphtheria and Acellular Pertussis (TDAP): Yes Tetanus Vaccine Date: 2013 - Medical/Surgical History Hx Asthma: No Hx Chronic Respiratory Disease: No Hx Diabetes: No Hx Cardiac Disease: Yes Hx Renal Disease: No Hx Cirrhosis: No Hx Alcoholism: No Hx HIV/AIDS: No Hx Splenectomy or Spleen Trauma: No Other PMH: atrial fibrillation, HTN, Hyperlipidemia, CVA without residuals, PACEMAKER, PROSTATE CA - Social History Smoking Status: Former smoker Constitutional: Initial Vital Signs Temperature (C) 36.4 C 08/21/17 11:22 Heart Rate 123 H 08/21/17 11:22 Respiratory Rate 20 08/21/17 11:22 Blood Pressure 92/76 L 08/21/17 11:22 O2 Sat (%) 90 L 08/21/17 11:22 O2 Delivery Mode Room Air Allergies/Adverse Reactions: No Known Allergies Allergy (Verified 08/21/17 11:22) Home Medications: Medication Instructions Recorded Citalopram [CeleXA 20 MG] 20 mg PO HS 03/27/10 Simvastatin [Zocor] 20 mg PO HS 03/27/10 Herbals/Supplements -Info Only 1 ea PO HS 07/21/17 Lisinopril/Hydrochlorothiazide 1 each PO HS 07/21/17 [Zestoretic 20-25 mg Tablet] Multivitamins [Multivitamin (*)] 1 each PO HS 07/21/17 Rivaroxaban [Xarelto 10mg (*)] 20 mg PO DAILY@18 07/21/17 traZODone [traZODone 150MG (*)] 150 mg PO HS PRN #0 08/12/17 Medical Decision Making - Diagnostics EKG Interpretation: 12 lead EKG is interpreted in Trace master View by emergency department physician. Atrial fibrillation with a rate around 1/3 E to 140. PVCs. Imaging Results: Imaging Impressions Chest X-Ray 08/21/17 11:43 Impression: No evidence for acute cardiopulmonary abnormality. Stable chronic findings, as above. ED Course/Re-evaluation: 72-year-old with paroxysmal atrial fibrillation who presents with atrial fibrillation RVR. His blood pressure slightly low but he is asymptomatic. Had a pacemaker placed at the end of June for sinus bradycardia. He had been tried on Toprol earlier for atrial fibrillation but did not tolerate this medicine well. Patient has spontaneously converted in the past. He was given 10 mg IV of diltiazem in the emergency department which slowed down his rate. He continued with atrial fibrillation. He remained asymptomatic although his systolic blood pressures were 100-110. He is on Xarelto. I reviewed his chest x-ray. Pacer leads appear intact. Blood work reviewed. Troponin normal. CBC and chemistries normal with the exception of an elevation of his blood sugar. He is being admitted to the hospitalist service with Cardiology consultation. I have spoken with Dr. Alexander Grace. Differential Diagnosis: I considered a differential diagnosis of atrial fibrillation that includes but is not limited to acute coronary syndrome, endocrine abnormality, value disease , hypertension, stimulants. - Data Points Laboratory Results: Laboratory Results 08/21/17 12:30 08/21/17 11:40 08/21/17 08/21/17 08/21/17 12:30 12:23 11:40 WBC 5.93 10^3/uL 10^3/uL (3.80-9.50) RBC 5.43 10^6/uL 10^6/uL (4.40-6.38) Hgb 16.3 g/dL g/dL (13.7-17.5) Hct 48.9 % % (40.0-51.0) MCV 90.1 fL fL (81.5-99.8) MCH 30.0 pg pg (27.9-34.1) MCHC 33.3 g/dL g/dL (32.4-36.7) RDW 13.5 % % (11.5-15.2) Plt Count 236 10^3/uL 10^3/uL (150-400) MPV 10.3 fL fL (8.7-11.7) Neut % (Auto) 66.0 % % (39.3-74.2) Lymph % (Auto) 20.7 % % (15.0-45.0) [place] % (Auto) 9.3 % % (4.5-13.0) Eos % (Auto) 3.2 % % (0.6-7.6) Baso % (Auto) 0.5 % % (0.3-1.7) Nucleat RBC Rel Count 0.0 % % (0.0-0.2) Absolute Neuts (auto) 3.91 10^3/uL 10^3/uL (1.70-6.50) Absolute Lymphs (auto) 1.23 10^3/uL 10^3/uL (1.00-3.00) Absolute Monos (auto) 0.55 10^3/uL 10^3/uL (0.30-0.80) Absolute Eos (auto) 0.19 10^3/uL 10^3/uL (0.03-0.40) Absolute Basos (auto) 0.03 10^3/uL 10^3/uL (0.02-0.10) Absolute Nucleated RBC 0.00 10^3/uL 10^3/uL (0-0.01) Immature Gran % 0.3 % % (0.0-1.1) Immature Gran # 0.02 10^3/uL 10^3/uL (0.00-0.10) Sodium 136 mEq/L mEq/L (135-145) Potassium 3.8 mEq/L mEq/L (3.3-5.0) Chloride 98 mEq/L mEq/L (97-110) Carbon Dioxide 29 mEq/l mEq/l (22-31) Anion Gap 9 mEq/L mEq/L (8-16) BUN 21 mg/dL mg/dL (7-23) Creatinine 0.9 mg/dL mg/dL (0.7-1.3) Estimated GFR > 60 Glucose 168 mg/dL H mg/dL (70-100) Calcium 9.3 mg/dL mg/dL (8.5-10.4) POC Troponin I 0.02 ng/mL ng/mL (0.00-0.08) 08/21/17 11:40 WBC REJ RBC REJ Hgb REJ Hct REJ MCV REJ MCH REJ MCHC REJ RDW REJ Plt Count REJ MPV REJ Neut % (Auto) REJ Lymph % (Auto) REJ Knox % (Auto) REJ Eos % (Auto) REJ Baso % (Auto) REJ Nucleat RBC Rel Count REJ Absolute Neuts (auto) REJ Absolute Lymphs (auto) REJ Absolute Monos (auto) REJ Absolute Eos (auto) REJ Absolute Basos (auto) REJ Absolute Nucleated RBC REJ Immature Gran % REJ Immature Gran # REJ Sodium Potassium Chloride Carbon Dioxide Anion Gap BUN Creatinine Estimated GFR Glucose Calcium POC Troponin I Medications Given: Discontinued Medications Diltiazem HCl (Cardizem 25 Mg/5 Ml Vial) 10 mg IVP EDNOW ONE Stop: 08/21/17 12:59 Last Admin: 08/21/17 13:23 Dose: 10 mg Point of Care Test Results: Chemistry 08/21/17 12:23 POC Troponin I 0.02 ng/mL ng/mL (0.00-0.08) Departure - Departure Disposition: [facility] Inpatient Acute Clinical Impression: Atrial fibrillation Qualifiers: Atrial fibrillation type: paroxysmal Qualified Code(s): I48.0 - Paroxysmal atrial fibrillation Condition: Fair
[2017-08-21] MEDS ORDERED: ONDANSETRON 4 MG/2 ML VIAL IVP PRN (16:12)
[2017-08-21] MEDS ORDERED: PROMETHAZINE HCL 25 MG/ML INJ IVP PRN (16:12)
[2017-08-21] MEDS ORDERED: ACETAMINOPHEN 325 MG TAB PO PRN (16:12)
[2017-08-21] MEDS ORDERED: oxyCODONE IR 5 MG TAB PO PRN (16:12)
[2017-08-21] MEDS ORDERED: NICOTINE POLACRILEX 2 MG GUM B PRN (16:12)
[2017-08-21] MEDS ORDERED: ONDANSETRON DISINTEGRATING 4 MG TAB PO PRN (16:12)
[2017-08-21] MEDS ORDERED: ALBUTEROL 3 ML DEYVIAL IH PRN (16:12)
--- NOTE | 2017-08-21 16:20 | PDGENHP ---
History and Physical - Chief Complaint "heart fibrillating" - History of Present Illness 72 yo M with a PMH of paroxysmal atrial fibrillation as well as symptomatic bradycardia now s/p permanent pacemaker presenting with concerns that he is back in a fib with a rapid rate. He notes that he has been feeling otherwise fine but since yesterday his heart rate was up again. He notes that he had some fatigue associated with that but no chest pain or sob. He has had intermittent a fib and was initially scheduled for elective cardioversion but while on toprol developed bradycardia that was ultimately felt to be symptomatic and therefore CV was canceled and PPM placed. After the placement of the PPM he had fatigue that led to another hospitalization with the cause of that fatigue being unclear, though a nuclear stress test at that time showed perhaps focal ischemia at LV apex however cardiology felt this was a low risk stress test that could be followed as OP. Patient notes that his o2 is always low, generally in the 80s, but he does not use supplemental o2. He believes that the majority of his sxs began shortly after quitting chewing tobacco and wonders if withdrawal from that could be the bigger issue. History Information - Allergies/Home Medication List Allergies/Adverse Reactions: No Known Allergies Allergy (Verified 08/21/17 11:22) Home Medications: Citalopram [CeleXA 20 MG] 20 mg PO HS 03/27/10 [Last Taken 08/20/17] Simvastatin [Zocor] 20 mg PO HS 03/27/10 [Last Taken 08/20/17] Herbals/Supplements -Info Only 1 ea PO HS 07/21/17 [Last Taken 08/09/17] Lisinopril/Hydrochlorothiazide [Zestoretic 20-25 mg Tablet] 1 each PO HS [Last Taken 08/20/17] Multivitamins [Multivitamin (*)] 1 each PO HS 07/21/17 [Last Taken 08/20/17] Rivaroxaban [Xarelto 10mg (*)] 20 mg PO DAILY@18 07/21/17 [Last Taken 08/20/17] I have personally reviewed and updated: family history, medical history, social history, surgical history - Past Medical History atrial fibrillation, cancer (prostate), CVA, hypertension, hyperlipidemia - Surgical History Reports: pacemaker/AICD - Family History Positive for: non-pertinent - Social History Smoking Status: Former smoker Tobacco Use: Cigarettes, Chew Alcohol Use: Rarely Drug Use: None Additional social history: , works as a rancher Review of Systems Review of Systems: ROS: 10pt was reviewed & negative except for what was stated in HPI & below Physical Exam Physical Exam: Temp Pulse Resp BP Pulse Ox 36.8 C 125 H 16 125/72 H 96 08/21/17 15:25 08/21/17 15:25 08/21/17 15:25 08/21/17 15:25 08/21/17 15:25 O2 (L/minute) 2 Constitutional: no apparent distress Eyes: PERRL, anicteric sclera Ears, Nose, Mouth, Throat: moist mucous membranes, hearing normal Cardiovascular: no murmur, rub, or gallop, irregularly irregular, edema Respiratory: no respiratory distress, no rales or rhonchi Gastrointestinal: normoactive bowel sounds, soft, non-tender abdomen Genitourinary: no bladder tenderness Skin: warm, normal color Musculoskeletal: full muscle strength Neurologic: AAOx3, CN II-XII Intact Psychiatric: interacting appropriately, not anxious Lab Data & Imaging Review 08/21/17 12:30 08/21/17 11:40 WBC 5.93 10^3/uL (3.80-9.50) 08/21/17 12:30 RBC 5.43 10^6/uL (4.40-6.38) 08/21/17 12:30 Hgb 16.3 g/dL (13.7-17.5) 08/21/17 12:30 Hct 48.9 % (40.0-51.0) 08/21/17 12:30 MCV 90.1 fL (81.5-99.8) 08/21/17 12:30 MCH 30.0 pg (27.9-34.1) 08/21/17 12:30 MCHC 33.3 g/dL (32.4-36.7) 08/21/17 12:30 RDW 13.5 % (11.5-15.2) 08/21/17 12:30 Plt Count 236 10^3/uL (150-400) 08/21/17 12:30 MPV 10.3 fL (8.7-11.7) 08/21/17 12:30 Neut % (Auto) 66.0 % (39.3-74.2) 08/21/17 12:30 Lymph % (Auto) 20.7 % (15.0-45.0) 08/21/17 12:30 Ashley % (Auto) 9.3 % (4.5-13.0) 08/21/17 12:30 Eos % (Auto) 3.2 % (0.6-7.6) 08/21/17 12:30 Baso % (Auto) 0.5 % (0.3-1.7) 08/21/17 12:30 Nucleat RBC Rel Count 0.0 % (0.0-0.2) 08/21/17 12:30 Absolute Neuts (auto) 3.91 10^3/uL (1.70-6.50) 08/21/17 12:30 Absolute Lymphs (auto) 1.23 10^3/uL (1.00-3.00) 08/21/17 12:30 Absolute Monos (auto) 0.55 10^3/uL (0.30-0.80) 08/21/17 12:30 Absolute Eos (auto) 0.19 10^3/uL (0.03-0.40) 08/21/17 12:30 Absolute Basos (auto) 0.03 10^3/uL (0.02-0.10) 08/21/17 12:30 Absolute Nucleated RBC 0.00 10^3/uL (0-0.01) 08/21/17 12:30 Immature Gran % 0.3 % (0.0-1.1) 08/21/17 12:30 Immature Gran # 0.02 10^3/uL (0.00-0.10) 08/21/17 12:30 Sodium 136 mEq/L (135-145) 08/21/17 11:40 Potassium 3.8 mEq/L (3.3-5.0) 08/21/17 11:40 Chloride 98 mEq/L (97-110) 08/21/17 11:40 Carbon Dioxide 29 mEq/l (22-31) 08/21/17 11:40 Anion Gap 9 mEq/L (8-16) 08/21/17 11:40 BUN 21 mg/dL (7-23) 08/21/17 11:40 Creatinine 0.9 mg/dL (0.7-1.3) 08/21/17 11:40 Estimated GFR > 60 08/21/17 11:40 Glucose 168 mg/dL (70-100) H 08/21/17 11:40 Calcium 9.3 mg/dL (8.5-10.4) 08/21/17 11:40 POC Troponin I 0.02 ng/mL (0.00-0.08) 08/21/17 12:23 Visualized and Interpreted Chest x-ray results: Yes Chest X-Ray results: normal Visualized and Interpreted EKG results: Yes EKG additional interpertation: a fib, rate of 134, occasional vpc Assessment & Plan Assessment: Atrial fibrillation (Acute) 72 yo M w/ hx of p afib presenting with a fib w/rvr # a fib w/rvr: rates in the 130s in the ER, given IVP dilt with some improvement and will plan to start dilt gtt. Cardiology has been consulted. Patient already anticoagulated with xarelto which will be continued. He has had difficulty tolerating rate controlling meds in the past with symptomatic bradycardia as next. Has had recent echo at [facility] (08/11) with EF of 54% , no significant valvular issues. Will not repeat at this time. # symptomatic bradycardia: as above and now with PPM, cards consulted, current in rapid a fib # hx of CVA: without residual sxs, remains on xarelto/statin # HTN: initially on the low end in the ER but now normalizing, on lisinopril/ hctz which will be continued so long as his bp remains stable # hypoxia: with o2 sats of 90% on RA, patient states he generally runs in the high 80s to low 90s, states he snores and is apneic at night, he does have a plan for sleep study, cxr unremarkable # hx of prostate cancer: does not appear to be an active issue at this time # observation status Patient new to my care. Old records reviewed and summarized as above. Care plan reviewed with ER doctor as above. Further hx obtaiend from patients present at bedside.
[2017-08-21] MEDS ORDERED: DILTIAZEM 125 MG in D5W 125 ML IV SCH ×2 (17:15→22:45)
[2017-08-21] MEDS ORDERED: RIVAROXABAN 10 MG TAB PO SCH (18:00)
[2017-08-21] MEDS ORDERED: LISINOPRIL/HCTZ 10/12.5 MG 1 EA TAB PO SCH (21:00)
[2017-08-21] MEDS ORDERED: MULTIVITAMINS 1 EACH TAB PO SCH (21:00)
[2017-08-21] MEDS ORDERED: CITALOPRAM 20 MG TAB PO SCH (21:00)
[2017-08-21] MEDS ORDERED: ATORVASTATIN CALCIUM 10 MG TAB PO SCH (21:00)
[2017-08-21] MEDS ORDERED: NS 1,000 ML IV ONE (22:07)
[2017-08-21] MEDS ORDERED: NS 500 ML IV ONE (22:40)
--- NOTE | 2017-08-22 08:38 | CPEKG ---
Heart Rate: 86 RR Interval: 698 QRSD Interval: 78 QT Interval: 396 QTC Interval: 474 QRS [place]: -69 T Wave [place]: 71 EKG Severity - ABNORMAL ECG - EKG Impression: AFIB/FLUT AND V-PACED COMPLEXES EKG Impression: LOW VOLTAGE IN FRONTAL LEADS Electronically Signed By: Jose A Ferrari 22-Aug-2017 10:58:12
[2017-08-22] MEDS ORDERED: NICOTINE 21 MG/24 HR PATCH TD SCH (09:00)
--- NOTE | 2017-08-22 11:01 | GCON ---
[f rep st] CONSULTATION DATE OF CONSULTATION: 08/22/2017 REASON FOR CONSULTATION: We have been asked by Dr. Corado to evaluate the patient with atrial fib rillation. HISTORY OF PRESENT ILLNESS: The patient is a 72-year-old gentleman with a history of paroxysmal atri al fibrillation who presents with atrial fibrillation and rapid ventricular response. The patient wa s in his usual state of health until approximately 6 p.m. when he noted an abrupt onset of a rapid he art rate. He presented to the emergency department, where he was found to be in atrial fibrillation with rapid ventricular response. The patient was admitted to the hospital and started on a diltiazem drip with a significant improvement in his heart rate. We have been consulted to help in the furthe r management of this patient. The patient has a long history of paroxysmal atrial fibrillation. He was unable to tolerate metoprolol therapy secondary to fatigue and symptoms of presyncope. The patie nt is status post recent pacemaker placement for symptomatic bradycardia. The patient's predominant symptom when in atrial fibrillation is a sensation of a rapid heart rate. He does not last picker the ir regularity of the heart rate. When he is rate-controlled he is relatively asymptomatic with respect to his atrial fibrillation. The patient denies symptoms of chest pain, orthopnea, and PND. PAST MEDICAL HISTORY: 1. Sick sinus syndrome. 2. Hyperlipidemia. 3. Hypertension. MEDICATIONS: Please see medicine reconciliation form. ALLERGIES: Patient reports an adverse drug reaction to metoprolol. SOCIAL HISTORY: Patient works managing a cattle farm. He has a previous history of tobacco use. He denies problems with alcohol. FAMILY HISTORY: Noncontributory. REVIEW OF SYSTEMS: 10-point review of systems is negative, except as noted in HPI. PHYSICAL EXAMINATION: GENERAL: The patient is resting comfortably in bed. He does not appear to be in acute distress. VITAL SIGNS: Temperature is afebrile, pulse is 85, blood pressure 110/66, respi ratory rate 16, SaO2 94% on 2 L nasal cannula. HEENT: Normocephalic, atraumatic. Extraocular muscl es intact. NECK: No JVD. No bruits. LUNGS: Clear to auscultation bilaterally. CARDIOVASCULAR: Regular rate, irregular rhythm. No murmurs, rubs, or gallops appreciated. ABDOMEN: Distended, nont radha, normoactive bowel sounds. No hepatosplenomegaly noted. Aorta could not be adequately palpate d. EXTREMITIES: No clubbing, cyanosis, or edema. SKIN: No evidence of rashes. NEURO: Patient is awake, alert, and oriented x3. LABORATORY: White blood cell count 5.93, hemoglobin 16.3, hematocrit 48.9, platelet count 236. [place] um 136, potassium 3.8, chloride 98, CO2 29, BUN 21, creatinine 0.9. Troponin within normal limits x1 . EKG demonstrates atrial fibrillation with rapid ventricular response. Chest x-ray with no acute c ardiopulmonary abnormalities. ASSESSMENT AND PLAN: The patient is a 72-year-old gentleman with: 1. Paroxysmal atrial fibrillation. The patient has a history of paroxysmal atrial fibrillation. He has been managed with a rate control and anticoagulation strategy. He presented to the hospital wit h atrial fibrillation and rapid ventricular response. His heart rate is well controlled currently on diltiazem and patient is relatively asymptomatic with respect to his atrial fibrillation when his he art rate is controlled. Reviewed treatment options with the patient and his , including a rate c ontrol and anticoagulation strategy as well as a rhythm control strategy. Patient would like to purs ue a rate control and anticoagulation strategy at this time. We will plan on starting diltiazem 120 mg daily for rate control. This will be roughly equivalent to his IV dose that is currently controll ing his heart rate. We will plan on continuing Xarelto for anticoagulation. 2. Hypertension. The patient has a long history of hypertension. His blood pressures was previousl y well controlled with lisinopril and hydrochlorothiazide. Currently his blood pressure was relative ly soft on the diltiazem drip. We will plan on holding this medication in favor of diltiazem for rat e control and blood pressure management. 3. Hyperlipidemia. Patient has a history of hyperlipidemia. He has been managed with simvastatin t herapy. Would like to change this to Lipitor therapy given need for Xarelto use and the potential in teraction with simvastatin. /[id number]/MODL
[2017-08-22] MEDS: DILTIAZEM CD 120 MG CAP PO SCH (11:41)
--- NOTE | 2017-08-22 14:48 | PDDCSUM ---
Discharge Summary Discharge Summary: Dates of service 08/21-08/22/17 Consultations: cardiology Procedures performed: none Hospital course by problem: 72 yo M w/ hx of p afib presenting with a fib w/rvr # a fib w/rvr: rates in the 130s in the ER, started on IV dilt and converted to PO with good control of HR. Patient already anticoagulated with xarelto which will be continued. He has had difficulty tolerating rate controlling meds in the past with symptomatic bradycardia as next. Has had recent echo at [facility] (08/11) with EF of 54%, no significant valvular issues. Discharged on diltiazem/xarelto and patient to f/u with cardiology after dc # symptomatic bradycardia: as above and now with PPM, cards consulted, current in rapid a fib # hx of CVA: without residual sxs, remains on xarelto/statin # HTN: had been on lisinopril/hctz however BP on the low end with diltiazem as well, will monitor on dilt alone after discharge # hypoxia: with o2 sats of 90% on RA, patient states he generally runs in the high 80s to low 90s, states he snores and is apneic at night, he does have a plan for sleep study, cxr unremarkable # hx of prostate cancer: does not appear to be an active issue at this time DC home f/u with cardiology and PCP > 35 min spent in dc more than half in coordination of care
[2017-08-22 15:11] VITALS: BP 101/73
--- NOTE | 2017-08-22 15:22 | ASDISCHSUM ---
Discharge Information Plan Status:Home with No Needs Medically Cleared to Leave:08/22/2017 Discharge Date:08/22/2017 CM D/C Disposition:Home, Routine, Self-Care ADT D/C Disposition:Home, Routine, Self-Care Projected Discharge Date:08/22/2017 Transportation at D/C: Discharge Delay Reason: Follow-Up Date:08/22/2017 Discharge Slot: Final Diagnosis: Placement Information Patient Contact Information Contact Name:HAYES Relationship: Address:[address] City:[place] Phone: [facility]/Zip Code:[place] [address] Email: Financial Information Financial Class:Medicare Primary Plan Desc:MEDICARE OUTPATIENT Primary Plan Number:[id number] Secondary Plan Desc:[employer]/MDR SUPPLEMENT Secondary Plan Number:[id number] Assessment Information Case Management Discharge Plan Note Case Management Discharge Discharge Order Complete? Answers: Yes Patient to Obtain Answers: Independently Medications Discharge Comments Notes: 08/22/2017 Case Management Note Pt admitted for chest pain and subsequent workup. Discussed pt during rounds this morning. There are no PT or OT evals ordered at this time. There are no identified case management d/c needs identified. Case Management d/c poc: independent. Date Signed: 08/22/2017 03:18 PM Electronically Signed By:Danita Art RN Intervention Information Intervention Type:*JOAN-Signed Date of Service:08/22/2017 10:14 AM Patient Type:Observation Staff Member:Sandra Krause Hours: Discipline: Severity: Comment:
--- NOTE | 2017-08-22 15:22 | ASMTLACE ---
LACE Length of stay for Answers: 1 day current admission Acuity / Level of Answers: Yes Care: Did the patient have an inpatient admission? Comorbidities - select Answers: Any tumor (including all that apply lymphoma or leukemia) Cerebrovascular disease (CVA, TIA, aneurysms, vasc ular dementia) Other Notes: Paroxysmal atrial fibrillation; HTN; HLD # of Emergency department Answers: 1-2 visits in the last 6 months Score: 9 Date Signed: 08/22/2017 03:20 PM Electronically Signed By:Danita Art RN
== END 2017-08-22 16:21 | disposition home or self-care (01) ==
LOC: F2W 15:18
PROVIDERS: ADMIT Internal Medicine; ATTEND Internal Medicine
DX: I48.0 Paroxysmal atrial fibrillation (principal); I10 Essential (primary) hypertension; E75.6 Lipid storage disorder, unspecified
CPT/HCPCS: 71046; 93005; G0378; 84484-PO; 96374

== ENCOUNTER 2017-12-05 15:16 | Inpatient (IN) | payer OTHER, MEDICARE ==
[2017-12-05] MEDS ORDERED: FUROSEMIDE 20 MG/2 ML VIAL IVP ONE (15:58)
--- NOTE | 2017-12-05 15:59 | EDPHY ---
H & P Stated Complaint: Sent by [facility] for eval fluid retention x3 days;sched for CV tomorrow Time Seen by Provider: 12/05/17 15:35 HPI/ROS: CHIEF COMPLAINT: Leg swelling, shortness of breath HISTORY OF PRESENT ILLNESS: 72-year-old male with atrial fibrillation on Xarelto presents with leg swelling and shortness of breath. Onset of leg swelling 3-4 weeks ago, gradually increasing. Shortness of breath started 4 days ago and has been gradually progressive. Now feels short of breath with minimal exertion. 30lb weight gain recently. Scheduled for cardioversion tomorrow. No chest pain or dizziness. No prior history of congestive heart failure. 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, PACEMAKER, PROSTATE CA - Social History Smoking Status: Former smoker Drug Use: None Additional Social History: - Physical Exam Exam: General Appearance: Alert, pleasant Eyes: Pupils equal and round, no conjunctival pallor or injection ENT, Mouth: Mucous membranes moist Neck: Normal inspection Respiratory: Rales at the bases Cardiovascular: Irregular rate and rhythm Gastrointestinal: Abdomen is soft and nontender Neurological: A&O, nonfocal exam Skin: Warm and dry, no rash Extremities: 3+ pedal edema Psychiatric: Mood and affect normal Constitutional: Initial Vital Signs Temperature (C) 36.7 C 12/05/17 15:25 Heart Rate 98 12/05/17 15:25 Respiratory Rate 18 12/05/17 15:25 Blood Pressure 139/94 H 12/05/17 15:25 O2 Sat (%) 92 12/05/17 15:25 O2 Delivery Mode Room Air O2 (L/minute) 2 Allergies/Adverse Reactions: No Known Allergies Allergy (Verified 12/05/17 15:30) Home Medications: Medication Instructions Recorded Rivaroxaban [Xarelto 10mg (*)] 20 mg PO DAILY@18 07/21/17 Atorvastatin Calcium [Lipitor 10 10 mg PO HS #30 tab 08/22/17 mg (*)] Nicotine Polacrilex [Nicorette gum 2 mg B Q1HR PRN gum 08/22/17 (*)] Nicotine [Nicoderm Cq 21 mg (*)] 21 mg TD DAILY patch 08/22/17 Diltiazem Cd [Cardizem ER 120 MG 120 mg PO HS 12/05/17 (*)] Diltiazem HCl [Diltiazem 24Hr Cd] 240 mg PO HS 12/05/17 Multivitamins [Multivitamin (*)] 1 each PO DAILY 12/05/17 Propafenone HCl [Propafenone HCl 225 mg PO BID 12/05/17 ER] traZODone [traZODone 150MG (*)] 300 mg PO HS PRN 12/05/17 Medical Decision Making - Diagnostics EKG Interpretation: EKG interpreted by me reveals atrial fibrillation and ventricular paced complexes, overall rate approximately 100, low voltage in the limb leads. Imaging Results: Imaging Impressions Chest X-Ray 12/05/17 15:37 Impression: Acute CHF with interstitial pulmonary edema. Imaging: I viewed and interpreted images myself ED Course/Re-evaluation: This pt presents in new onset CHF, likely secondary to Afib. Stat EKG reveals no evidence of ischemia. Initial troponin is normal and I do not suspect acute coronary syndrome in this patient. Chest x-ray reveals acute pulmonary edema. Lasix 20mg IV given. Can likely add Diltiazem for rate control as inpt, consider cardioversion in am. Urinated x 3, unfortunately not collected/ measured, but pt states he's urinating substantially. Blood pressure remained stable. ECHO obtained. The hospitalist service was consulted for admission. Dr. Michael Tillman was consulted and will see the patient in the hospital. I spent a total of 35 minutes of critical care time in obtaining history, performing a physical exam, bedside monitoring of interventions, collecting and interpreting tests and discussion with consultants but not including time spent performing procedures. Organ at risk: Heart Differential Diagnosis: Differential diagnosis includes though it is not limited to pneumonia, pneumothorax, pulmonary embolism, aortic dissection, pericarditis, acute coronary syndrome. - Data Points Laboratory Results: Laboratory Results 12/05/17 16:00 12/05/17 16:00 12/05/17 12/05/17 12/05/17 16:33 16:00 16:00 WBC RBC Hgb Hct MCV MCH MCHC RDW Plt Count MPV Neut % (Auto) Lymph % (Auto) [place] % (Auto) Eos % (Auto) Baso % (Auto) Nucleat RBC Rel Count Absolute Neuts (auto) Absolute Lymphs (auto) Absolute Monos (auto) Absolute Eos (auto) Absolute Basos (auto) Absolute Nucleated RBC Immature Gran % Immature Gran # D-Dimer Sodium 140 mEq/L mEq/L (135-145) Potassium 4.2 mEq/L mEq/L (3.3-5.0) Chloride 101 mEq/L mEq/L (97-110) Carbon Dioxide 29 mEq/l mEq/l (22-31) Anion Gap 10 mEq/L mEq/L (6-14) BUN 24 mg/dL H mg/dL (7-23) Creatinine 1.0 mg/dL mg/dL (0.7-1.3) Estimated GFR > 60 Glucose 84 mg/dL mg/dL (70-100) Calcium 9.0 mg/dL mg/dL (8.5-10.4) POC Troponin I 0.00 ng/mL ng/mL (0.00-0.08) Troponin I Pending NT-Pro-B Natriuret Pep 1090 pg/mL H pg/mL (0-125) 12/05/17 12/05/17 16:00 16:00 WBC 6.41 10^3/uL 10^3/uL (3.80-9.50) RBC 4.91 10^6/uL 10^6/uL (4.40-6.38) Hgb 14.9 g/dL g/dL (13.7-17.5) Hct 45.3 % % (40.0-51.0) MCV 92.3 fL fL (81.5-99.8) MCH 30.3 pg pg (27.9-34.1) MCHC 32.9 g/dL g/dL (32.4-36.7) RDW 14.2 % % (11.5-15.2) Plt Count 260 10^3/uL 10^3/uL (150-400) MPV 9.9 fL fL (8.7-11.7) Neut % (Auto) 65.5 % % (39.3-74.2) Lymph % (Auto) 20.0 % % (15.0-45.0) [place] % (Auto) 11.1 % % (4.5-13.0) Eos % (Auto) 2.5 % % (0.6-7.6) Baso % (Auto) 0.6 % % (0.3-1.7) Nucleat RBC Rel Count 0.0 % % (0.0-0.2) Absolute Neuts (auto) 4.20 10^3/uL 10^3/uL (1.70-6.50) Absolute Lymphs (auto) 1.28 10^3/uL 10^3/uL (1.00-3.00) Absolute Monos (auto) 0.71 10^3/uL 10^3/uL (0.30-0.80) Absolute Eos (auto) 0.16 10^3/uL 10^3/uL (0.03-0.40) Absolute Basos (auto) 0.04 10^3/uL 10^3/uL (0.02-0.10) Absolute Nucleated RBC 0.00 10^3/uL 10^3/uL (0-0.01) Immature Gran % 0.3 % % (0.0-1.1) Immature Gran # 0.02 10^3/uL 10^3/uL (0.00-0.10) D-Dimer 0.63 ug/mLFEU H ug/mLFEU (0.00-0.50) Sodium Potassium Chloride Carbon Dioxide Anion Gap BUN Creatinine Estimated GFR Glucose Calcium POC Troponin I Troponin I NT-Pro-B Natriuret Pep Medications Given: Atorvastatin Calcium (Lipitor) 10 mg PO HS [facility] Stop: 06/03/18 20:59 Last Admin: 12/05/17 21:01 Dose: 10 mg Diltiazem HCl (Cardizem Er Q24hr) 120 mg PO HS [facility] Stop: 06/03/18 20:59 Last Admin: 12/05/17 21:03 Dose: 120 mg Diltiazem HCl (Dilacor Xr) 240 mg PO HS [facility] Stop: 06/03/18 20:59 Last Admin: 12/05/17 21:01 Dose: 240 mg Enoxaparin Sodium (Lovenox) 120 mg SC BID [facility] Stop: 06/03/18 20:59 Last Admin: 12/05/17 21:01 Dose: 120 mg Propafenone HCl (Rythmol Sr) 225 mg PO BID [facility] Stop: 06/03/18 20:59 Last Admin: 12/05/17 21:01 Dose: 225 mg Discontinued Medications Furosemide (Lasix Injection) 20 mg IVP [facility] ONE Stop: 12/05/17 15:59 Last Admin: 12/05/17 16:08 Dose: 20 mg Point of Care Test Results: Chemistry 12/05/17 16:33 POC Troponin I 0.00 ng/mL ng/mL (0.00-0.08) Departure - Departure Disposition: [facility] Inpatient Acute Clinical Impression: CHF (congestive heart failure) Qualifiers: Heart failure type: combined systolic and diastolic Heart failure chronicity: acute Qualified Code(s): I50.41 - Acute combined systolic (congestive) and diastolic (congestive) heart failure Condition: Fair
[2017-12-05 16:12] LABS: PLATELET COUNT 260 10^3/uL (150-400)
[2017-12-05] MEDS ORDERED: ONDANSETRON 4 MG/2 ML VIAL IVP PRN (17:10)
[2017-12-05] MEDS ORDERED: ACETAMINOPHEN 325 MG TAB PO PRN (17:10)
[2017-12-05] MEDS ORDERED: ONDANSETRON DISINTEGRATING 4 MG TAB PO PRN (17:10)
[2017-12-05] MEDS ORDERED: oxyCODONE IR 5 MG TAB PO PRN (17:10)
[2017-12-05] MEDS ORDERED: HYDROCODONE/APAP 5/325 TAB PO PRN (17:10)
--- NOTE | 2017-12-05 17:56 | ECHO ---
[email or web address] [address] Main: [phone] Fax: Transthoracic Echocardiogram Name: KIT FOSS MR#: [id number] Study Date: 12/05/2017 Study Time: 04:48 PM Date of : 1945 Age: 72 year(s) Height: 175.3 cm (69 in.) Weight: 127.01 kg (280 lb.) BSA: 2.38 m2 Gender: Male Examination: Echo Indication: new onset pulmonary edema Image Quality: Technically Difficult Contrast: Requested by: Ifeoma Lala BP: 150 mmHg/102 mmHg Heart Rate: Rhythm: Indication: new onset pulmonary edema Procedure Staff Chiropractic Teacher: Brittaney Stoner [facility] Reading Physician: Rowdy Kumari MD Requesting Provider: Conclusions: Left ventricular systolic function and wall motion is difficult to assess due to irregular rhythm and poor acoustical window. Estimated EF 40-45%. Rhythm is a combination of rapid atrial fibrillation, paced rhythm and PVC's. Diastolic dysfunction is also indeterminate due to rhythm. Mild concentric LV hypertrophy. Mildly reduced RV function. Mild to moderate mitral regurgitation. The tricuspid valve is normal in appearance and function. Mild tricuspid regurgitation is present. Pulmonary artery pressure is not obtained due to inadequate TR jet. Perhaps definity tomorrow when rhythm is better controlled?. Measurements: Chambers Valvular Assessment AV/MV Valvular Assessment TV/PV Normal Normal Normal Name Value Range Name Value Range Name Value Range Ao Brunilda (MM): 2.4 cm (2.2 cm-3.7 AV Vmax: 1.01 m/s (1 m/s-1.7 cm) m/s) IVSd (MM): 1.0 cm (0.6 cm-0.9 AV maxP mmHg ( - ) cm) LVOT Vmax: 0.79 m/s (0.7 m/s-1.1 LVDd (MM): 5.6 cm (4.2 cm-5.9 m/s) cm) LVDs (MM): 4.7 cm (2 cm-3.8 cm) LVPWd (MM): 1.1 cm (0.6 cm-1 cm) LVEF (BP): 44 % (>=55 %) RVDd(2D): 2.9 cm (1.9 cm-3.8 cmmm) Continued Measurements: Patient: KIT FOSS Study Date: 12/05/2017 Page 1 of 2 04:48 PM Chambers Valvular Assessment TV/PV Name Value Name Value LADs Lon.7 cm CVP (est.): 15 mmHg LA Area: 24.6 cm2 LA Volume: 78 ml LA Volume Index: 32.8 ml/m2 RA Area: 20.7 cm2 Additional Vessels Name Value Ao Ascendin.8 cm Findings: Left Ventricle: Dilated left ventricle. Left ventricular systolic function and wall motion is difficult to assess due to irregular rhythm and poor acoustical window. Estimated EF 40-45%. Rhythm is a combination of rapid atrial fibrillation, paced rhythm and PVC's. Diastolic dysfunction is also indeterminate due to rhythm. Mild concentric LV hypertrophy. Right Ventricle: Normal size right ventricle. Mildly reduced RV function. Left Atrium: The left atirum is borderline dilated. Right Atrium: The right atrium is mildly dilated. Mitral Valve: The mitral valve is normal in appearance. Mild to moderate mitral regurgitation. No mitral stenosis is present. Aortic Valve: Aortic valve is not well visualized. There is no significant aortic valve regurgitation. No aortic valve stenosis is present. Tricuspid Valve: The tricuspid valve is normal in appearance and function. Mild tricuspid regurgitation is present. Pulmonary artery pressure is not obtained due to inadequate TR jet. Pulmonic Valve: Pulmonary valve not well visualized. There is no pulmonic regurgitation seen. Aorta: Normal size aortic root measuring 2.4 cm. Normal size ascending aorta measuring 3.8 cm. IVC: The IVC is dilated. There is less than 50% respiratory excursion. Pericardium: Trivial pericardial effusion. Exam Comments: Perhaps definity tomorrow when rhythm is better controlled?. (No Signature Object) Patient: KTI FOSS Study Date: 12/05/2017 Page 2 of 2 04:48 PM [id number]
[2017-12-05] MEDS ORDERED: NICOTINE POLACRILEX 2 MG GUM B PRN (18:04)
--- NOTE | 2017-12-05 19:10 | PDGENHP ---
History and Physical - Chief Complaint sob, weight gain - History of Present Illness Patient is a 72 yo M with a PMH of A fib as well as SSS s/p PPM who presents from his cardiologists office, Dr. Fox, with complaints of sob, leg swelling and weight gain of about 30 pounds. There was a plan for CV in the am as patient has been in a fib for the last several month on review of his pacer but given his volume overload he was sent here for further evaluation. 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 He also began having sob and particularly at night has been unable to lie flat and wakes gasping for air. He has not been able to walk from his car to the end of a parking lot without needing to stop for breath and he is generally a very sturdy/hard working rancher. He states that over the last several weeks he has had some very minor chest pain but not enough that he particularly worried about it. He denies any cough, fever, pain in his legs or other changes to his health recently. History Information - Allergies/Home Medication List Allergies/Adverse Reactions: No Known Allergies Allergy (Verified 12/05/17 15:30) Home Medications: Rivaroxaban [Xarelto 10mg (*)] 20 mg PO DAILY@18 07/21/17 [Last Taken 12/04/17] Diltiazem Cd [Cardizem ER 120 MG (*)] 120 mg PO HS 12/05/17 [Last Taken Unknown] Diltiazem HCl [Diltiazem 24Hr Cd] 240 mg PO HS 12/05/17 [Last Taken 12/04/17] Multivitamins [Multivitamin (*)] 1 each PO DAILY 12/05/17 [Last Taken 12/05/17] Propafenone HCl [Propafenone HCl ER] 225 mg PO BID 12/05/17 [Last Taken 09:00] traZODone [traZODone 150MG (*)] 300 mg PO HS PRN 12/05/17 [Last Taken 12/04/17] I have personally reviewed and updated: family history, medical history, social history, surgical history - Past Medical History atrial fibrillation, cancer (prostate), CVA, hypertension, hyperlipidemia - Surgical History Reports: pacemaker/AICD - Family History Positive for: non-pertinent - Social History Smoking Status: Former smoker Tobacco Use: Chew (quit recently) Alcohol Use: Rarely Drug Use: None Additional social history: , works as a rancher Review of Systems Review of Systems: ROS: 10pt was reviewed & negative except for what was stated in HPI & below Physical Exam Physical Exam: Temp Pulse Resp BP Pulse Ox 36.8 C 94 13 138/89 H 93 12/05/17 17:48 12/05/17 17:48 12/05/17 17:48 12/05/17 17:48 12/05/17 17:48 O2 (L/minute) 2 Constitutional: no apparent distress, appears nourished Eyes: PERRL, anicteric sclera Ears, Nose, Mouth, Throat: moist mucous membranes, hearing normal Cardiovascular: no murmur, rub, or gallop, irregularly irregular, edema Respiratory: no respiratory distress, reduced air movement (at bases), rhonchi Gastrointestinal: normoactive bowel sounds, soft, non-tender abdomen Genitourinary: no bladder tenderness Skin: warm, normal color Musculoskeletal: full muscle strength Neurologic: AAOx3 Psychiatric: interacting appropriately, not anxious, not encephalopathic Lab Data & Imaging Review 12/05/17 16:00 12/05/17 16:00 WBC 6.41 10^3/uL (3.80-9.50) 12/05/17 16:00 RBC 4.91 10^6/uL (4.40-6.38) 12/05/17 16:00 Hgb 14.9 g/dL (13.7-17.5) 12/05/17 16:00 Hct 45.3 % (40.0-51.0) 12/05/17 16:00 MCV 92.3 fL (81.5-99.8) 12/05/17 16:00 MCH 30.3 pg (27.9-34.1) 12/05/17 16:00 MCHC 32.9 g/dL (32.4-36.7) 12/05/17 16:00 RDW 14.2 % (11.5-15.2) 12/05/17 16:00 Plt Count 260 10^3/uL (150-400) 12/05/17 16:00 MPV 9.9 fL (8.7-11.7) 12/05/17 16:00 Neut % (Auto) 65.5 % (39.3-74.2) 12/05/17 16:00 Lymph % (Auto) 20.0 % (15.0-45.0) 12/05/17 16:00 [place] % (Auto) 11.1 % (4.5-13.0) 12/05/17 16:00 Eos % (Auto) 2.5 % (0.6-7.6) 12/05/17 16:00 Baso % (Auto) 0.6 % (0.3-1.7) 12/05/17 16:00 Nucleat RBC Rel Count 0.0 % (0.0-0.2) 12/05/17 16:00 Absolute Neuts (auto) 4.20 10^3/uL (1.70-6.50) 12/05/17 16:00 Absolute Lymphs (auto) 1.28 10^3/uL (1.00-3.00) 12/05/17 16:00 Absolute Monos (auto) 0.71 10^3/uL (0.30-0.80) 12/05/17 16:00 Absolute Eos (auto) 0.16 10^3/uL (0.03-0.40) 12/05/17 16:00 Absolute Basos (auto) 0.04 10^3/uL (0.02-0.10) 12/05/17 16:00 Absolute Nucleated RBC 0.00 10^3/uL (0-0.01) 12/05/17 16:00 Immature Gran % 0.3 % (0.0-1.1) 12/05/17 16:00 Immature Gran # 0.02 10^3/uL (0.00-0.10) 12/05/17 16:00 D-Dimer 0.63 ug/mLFEU (0.00-0.50) H 12/05/17 16:00 Sodium 140 mEq/L (135-145) 12/05/17 16:00 Potassium 4.2 mEq/L (3.3-5.0) 12/05/17 16:00 Chloride 101 mEq/L (97-110) 12/05/17 16:00 Carbon Dioxide 29 mEq/l (22-31) 12/05/17 16:00 Anion Gap 10 mEq/L (6-14) 12/05/17 16:00 BUN 24 mg/dL (7-23) H 12/05/17 16:00 Creatinine 1.0 mg/dL (0.7-1.3) 12/05/17 16:00 Estimated GFR > 60 12/05/17 16:00 Glucose 84 mg/dL (70-100) 12/05/17 16:00 Calcium 9.0 mg/dL (8.5-10.4) 12/05/17 16:00 POC Troponin I 0.00 ng/mL (0.00-0.08) 12/05/17 16:33 NT-Pro-B Natriuret Pep 1090 pg/mL (0-125) H 12/05/17 16:00 Visualized and Interpreted Chest x-ray results: Yes Chest X-Ray results: other (acute chf with interstitial infiltrates) Visualized and Interpreted EKG results: Yes EKG additional interpertation: a fib/flutter with v paced complexes Assessment & Plan Assessment: CHF (congestive heart failure) (Acute) 72 yo M with PMH of A fib, SSS s/p PPM presenting with acute systolic heart failure in setting of prolonged a fib # acute decompensated chf: with echo performed in ER showing EF of 40-45% from last noted to be 54%, evidence of acute pulmonary edema and volume overload on exam. Given lasix in ER and already feeling as if he is breathing better, will continue. He has not had evidence of chf in the past, query if related to prolonged a fib versus ischemic event, will get f/u trop, monitor on tele, tsh, cards consulted. # a fib: rate controlled, had been scheduled for CV in am but given above that will be deferred for now pending better volume status. Will continue home dilt and propafenone doses, will hold rivaroxaban and start LMWH while in house in case CV or cath to be performed # acute hypoxic respiratory failure: with o2 of 88% on RA, 2/2 pulmonary edema in setting of acute chf, will continue lasix and monitor # chronic medical issues: htn, HLD, hx of cva, hx of prostate cancer--no acute issues, will continue home meds/op f/u # IP status, will require > 48 hours stay for eval/mgmt of above Patient new to my care. Old records reviewed and summarized as above. Care plan reviewed with ER doctor including plans for lasix.
[2017-12-05] MEDS: PROPAFENONE HCL SR 225 MG CAP PO SCH (21:01)
[2017-12-05] MEDS: ATORVASTATIN CALCIUM 10 MG TAB PO SCH (21:01)
[2017-12-05] MEDS: ENOXAPARIN 120 MG/0.8 ML SYR SC SCH (21:01)
[2017-12-05] MEDS: DILTIAZEM XR 240 MG CAP PO SCH (21:01)
[2017-12-05] MEDS: DILTIAZEM CD 120 MG CAP PO SCH (21:03)
--- NOTE | 2017-12-05 22:18 | CPEKG ---
Test Reason : OPEN Blood Pressure : / mmHG Vent. Rate : 098 BPM Atrial Rate : 000 BPM P-R Int : 119 ms QRS Dur : 084 ms QT Int : 365 ms P-R-T Axes : 000 137 065 degrees QTc Int : 467 ms Afib/flut and V-paced complexes Low voltage, extremity leads Confirmed by Ifeoma Lala ([id number]) on 12/05/2017 10:18:13 PM Referred By: Confirmed By:Ifeoma Lala
[2017-12-06 05:07] LABS: PLATELET COUNT 239 10^3/uL (150-400)
--- NOTE | 2017-12-06 08:44 | ASMTLACE ---
YOUNG Acuity / Level of Answers: Yes Care: Did the patient have an inpatient admission? Comorbidities - select Answers: Cerebrovascular disease all that apply (CVA, TIA, aneurysms, vasc ular dementia) Congestive heart failure Opioid dependence / Chronic pain Other Notes: AFib; HTN; HLD; Hx prostate cancer # of Emergency department Answers: 3-4 visits in the last 6 months Score: 14 Date Signed: 12/06/2017 08:43 AM Electronically Signed By:Sandra Krause
[2017-12-06] MEDS: PROPAFENONE HCL SR 225 MG CAP PO SCH ×2 (08:53→20:39)
[2017-12-06] MEDS: MULTIVITAMINS 1 EACH TAB PO SCH (08:54)
[2017-12-06] MEDS: ENOXAPARIN 120 MG/0.8 ML SYR SC SCH ×2 (08:54→20:37)
[2017-12-06] MEDS: NICOTINE 21 MG/24 HR PATCH TD SCH (08:55)
[2017-12-06] MEDS ORDERED: FUROSEMIDE 20 MG/2 ML VIAL IVP SCH ×2 (09:00→09:14)
--- NOTE | 2017-12-06 09:38 | HOSPPROG ---
Hospitalist Progress Note Assessment/Plan: #Acutely decompensated systolic HF: EF 54%-->40%. Pulm edema on x-ray ( personally reviewed) -Increased Lasix to 40mg BIB #Permanent atrial fibrillation: Diltiazem, Lovenox here. Was scheduled for cardioversion today, but on hold until edema improved #HTN: BP controlled #HLD: Lipitor #h/o prostate cancer: stable #Diet: cardiac, 1.5L fluid #Disp: inpatient admission for monitored diuresis Subjective: SOB and leg swelling much improved Objective: Vital Signs Temp Pulse Resp BP Pulse Ox 36.5 C 91 16 120/79 96 12/06/17 07:18 12/06/17 07:18 12/06/17 07:18 12/06/17 07:18 12/06/17 07:18 Laboratory Results 12/06/17 04:40 12/06/17 04:40 12/05/17 12/06/17 12/07/17 05:59 05:59 05:59 Intake Total 670 Output Total 1150 Balance -480 - Time Spent With Patient Time Spent with Patient: greater than 35 minutes Time Spent with Patient: Greater than 35 minutes spent on this patients care, greater than 50% of time spent counseling, educating, and coordinating care regarding the above mentioned plan. - Physical Exam Constitutional: obese Eyes: PERRL Ears, Nose, Mouth, Throat: moist mucous membranes Cardiovascular: irregularly irregular, edema (+ 2 BL legs) Respiratory: inspiratory crackles Gastrointestinal: normoactive bowel sounds Genitourinary: no bladder fullness Skin: warm Musculoskeletal: full muscle strength Neurologic: AAOx3, CN II-XII Intact Psychiatric: interacting appropriately ICD10 Worksheet Patient Problems: Problems Problem Status Onset CHF (congestive heart failure) Acute chronic disease mgmt/transitional care Acute Atrial fibrillation Acute Fatigue Acute Pre-syncope Acute Shortness of breath Acute
[2017-12-06] MEDS ORDERED: FUROSEMIDE 20 MG/2 ML VIAL IV ONE (09:45)
--- NOTE | 2017-12-06 10:10 | PDMN ---
Medical Necessity Medical necessity: MCG M190 Heart Failure: 72 yo with PMH of A fib, SSS s/p PPM presenting with acute systolic heart failure in setting of prolonged a fib. Evidence of acute pulm edema and volume overload, acute hypoxic respiratory failure with O2 of 88% on RA. HR tachy 100s, BNP 1090, IV Lasix and O2 started. IP status, will require > 48 hours stay for eval/mgmt of above. Hx HTN, HLD, CVA, prostate cancer
--- NOTE | 2017-12-06 11:59 | PDCARCONS ---
<TalyaDiegoi - Last Filed: 12/06/17 11:55> Cardiology Consult Reason for Consult: AF/SCHF. Chief Complaint: shortness of breath Requesting Physician: Dr. Hart History of Present Illness: Mr. Leeanne Arriaga charly a 72-y/o M with PMH obesity with BMI 40, SSS s/p PPM, PAF , who presents with SCHF. Over the last few months, he has noted weight gain of up to 30 lbs. In the last week, the weight gain has increased to the point he cannot get his pants to fit. He also noted PND with inability to lie flat. He notes peripheral edema and even swelling in his face. He describes a chest pressure which he feels could be "gas." It charly very short-lived and not associated with activities. He denies any presyncope/syncope. No recent F/C. He has had AF in the past and most recent DCCV was in 07/08. Recently on pacer interrogation, he has been in persistent AF. He saw Dr. Fox yesterday and was noted to have increased and dyspnea at rest which prompted recommendations for ED presentation. He reports that after receiving IV lasix, he is feeling improved. History Information - Allergies/Home Medication List Allergies/Adverse Reactions: No Known Allergies Allergy (Verified 12/05/17 15:30) Home Medications: Rivaroxaban [Xarelto 10mg (*)] 20 mg PO DAILY@18 07/21/17 [Last Taken 12/04/17] Diltiazem Cd [Cardizem ER 120 MG (*)] 120 mg PO HS 12/05/17 [Last Taken Unknown] Diltiazem HCl [Diltiazem 24Hr Cd] 240 mg PO HS 12/05/17 [Last Taken 12/04/17] Multivitamins [Multivitamin (*)] 1 each PO DAILY 12/05/17 [Last Taken 12/05/17] Propafenone HCl [Propafenone HCl ER] 225 mg PO BID 12/05/17 [Last Taken 09:00] traZODone [traZODone 150MG (*)] 300 mg PO HS PRN 12/05/17 [Last Taken 12/04/17] Past Medical History: - Past Medical History atrial fibrillation, CVA, hypertension - Surgical History Reports: pacemaker/AICD - Family History Positive for: non-pertinent - Social History Smoking Status: Former smoker Tobacco Use: Chew (quit recently) Alcohol Use: Rarely Drug Use: None Age in Years: [age] Sex: Male Congestive Heart Failure History: Yes Hypertension History: Yes Stroke/TIA/Thromboembolism History: Yes Physical Exam Physical Exam: Temp Pulse Resp BP Pulse Ox 97.7 F 91 16 120/79 96 12/06/17 07:18 12/06/17 07:18 12/06/17 07:18 12/06/17 07:18 12/06/17 07:18 O2 (L/minute) 2 Constitutional: no apparent distress, appears nourished Eyes: PERRL, anicteric sclera Ears, Nose, Mouth, Throat: moist mucous membranes, hearing normal Cardiovascular: no murmur, rub, or gallop, irregularly irregular, pulses symmetric bilaterally Respiratory: no respiratory distress, reduced air movement, inspiratory crackles Gastrointestinal: normoactive bowel sounds, distension Genitourinary: No smith in urethra Skin: warm, normal color, other (2-3+ edema) Neurologic: AAOx3 Psychiatric: interacting appropriately, not anxious Lab and Imaging 12/06/17 04:40 12/06/17 04:40 WBC 5.66 10^3/uL (3.80-9.50) 12/06/17 04:40 RBC 4.59 10^6/uL (4.40-6.38) 12/06/17 04:40 Hgb 13.8 g/dL (13.7-17.5) 12/06/17 04:40 Hct 42.5 % (40.0-51.0) 12/06/17 04:40 MCV 92.6 fL (81.5-99.8) 12/06/17 04:40 MCH 30.1 pg (27.9-34.1) 12/06/17 04:40 MCHC 32.5 g/dL (32.4-36.7) 12/06/17 04:40 RDW 14.3 % (11.5-15.2) 12/06/17 04:40 Plt Count 239 10^3/uL (150-400) 12/06/17 04:40 MPV 10.1 fL (8.7-11.7) 12/06/17 04:40 Neut % (Auto) 59.7 % (39.3-74.2) 12/06/17 04:40 Lymph % (Auto) 21.7 % (15.0-45.0) 12/06/17 04:40 Buchanan % (Auto) 13.3 % (4.5-13.0) H 12/06/17 04:40 Eos % (Auto) 4.2 % (0.6-7.6) 12/06/17 04:40 Baso % (Auto) 0.9 % (0.3-1.7) 12/06/17 04:40 Nucleat RBC Rel Count 0.0 % (0.0-0.2) 12/06/17 04:40 Absolute Neuts (auto) 3.38 10^3/uL (1.70-6.50) 12/06/17 04:40 Absolute Lymphs (auto) 1.23 10^3/uL (1.00-3.00) 12/06/17 04:40 Absolute Monos (auto) 0.75 10^3/uL (0.30-0.80) 12/06/17 04:40 Absolute Eos (auto) 0.24 10^3/uL (0.03-0.40) 12/06/17 04:40 Absolute Basos (auto) 0.05 10^3/uL (0.02-0.10) 12/06/17 04:40 Absolute Nucleated RBC 0.00 10^3/uL (0-0.01) 12/06/17 04:40 Immature Gran % 0.2 % (0.0-1.1) 12/06/17 04:40 Immature Gran # 0.01 10^3/uL (0.00-0.10) 12/06/17 04:40 D-Dimer 0.63 ug/mLFEU (0.00-0.50) H 12/05/17 16:00 Sodium 139 mEq/L (135-145) 12/06/17 04:40 Potassium 4.0 mEq/L (3.3-5.0) 12/06/17 04:40 Chloride 101 mEq/L (97-110) 12/06/17 04:40 Carbon Dioxide 31 mEq/l (22-31) 12/06/17 04:40 Anion Gap 7 mEq/L (6-14) 12/06/17 04:40 BUN 24 mg/dL (7-23) H 12/06/17 04:40 Creatinine 1.0 mg/dL (0.7-1.3) 12/06/17 04:40 Estimated GFR > 60 12/06/17 04:40 Glucose 102 mg/dL (70-100) H 12/06/17 04:40 Calcium 8.8 mg/dL (8.5-10.4) 12/06/17 04:40 POC Troponin I 0.00 ng/mL (0.00-0.08) 12/05/17 16:33 Troponin I < 0.012 ng/mL (0.000-0.034) 12/06/17 04:40 NT-Pro-B Natriuret Pep 1090 pg/mL (0-125) H 12/05/17 16:00 TSH 3.190 uIU/mL (0.465-4.680) 12/06/17 04:40 Visualized and Interpreted Chest x-ray results: Yes Chest X-ray Interpretation: other (interstitial infiltrates) Visualized and Interpreted EKG results: Yes EKG additional interpertation: AF with occasional V-paced beats Telemetry: reviewed/ AF Echocardiogram: EF 40-45, conc LVH mild, mildly reduced RV function, mild-mod MR A/P Assessment: 1) persistent AF 2) SCHF new problem 3) mild-mod MR 4) anasarca 5) atypical cp Plan: 1) AF. With his AF, he has had some elevated rates. His home Diltiazem will be continued but change to BB may be considered. He has recently started Rythmol and was to actually have an outpatient DCCV today; however, since he is in heart failure currently, we will try to optimize fluid status prior to undertaking cardioversion. [id number] is 5, and he is appropriately anticoagulated with Xarelto. 2) SCHF. New problem. Likely related to #1. His Lasix dose is being increased. We discussed this disease process at length today. Will defer ACEi to allow room for increase in his rate control; however, we can likely add one prior to his discharge. 3) atypical cp. Troponins negative. Last stress MPI is from our office dated which showed normal perfusion. Will defer any invasibe testing at this time. 4) Mild-mod MR. This can be followed with routine echoes. <Andry Espinoza - Last Filed: 12/06/17 15:59> History Information Past Medical History: Physical Exam Physical Exam: Temp Pulse Resp BP Pulse Ox 36.7 C 87 16 139/88 H 96 12/06/17 15:11 12/06/17 15:11 12/06/17 15:11 12/06/17 15:11 12/06/17 15:11 O2 (L/minute) 2 Lab and Imaging 12/06/17 04:40 12/06/17 04:40 WBC 5.66 10^3/uL (3.80-9.50) 12/06/17 04:40 RBC 4.59 10^6/uL (4.40-6.38) 12/06/17 04:40 Hgb 13.8 g/dL (13.7-17.5) 12/06/17 04:40 Hct 42.5 % (40.0-51.0) 12/06/17 04:40 MCV 92.6 fL (81.5-99.8) 12/06/17 04:40 MCH 30.1 pg (27.9-34.1) 12/06/17 04:40 MCHC 32.5 g/dL (32.4-36.7) 12/06/17 04:40 RDW 14.3 % (11.5-15.2) 12/06/17 04:40 Plt Count 239 10^3/uL (150-400) 12/06/17 04:40 MPV 10.1 fL (8.7-11.7) 12/06/17 04:40 Neut % (Auto) 59.7 % (39.3-74.2) 12/06/17 04:40 Lymph % (Auto) 21.7 % (15.0-45.0) 12/06/17 04:40 Buchanan % (Auto) 13.3 % (4.5-13.0) H 12/06/17 04:40 Eos % (Auto) 4.2 % (0.6-7.6) 12/06/17 04:40 Baso % (Auto) 0.9 % (0.3-1.7) 12/06/17 04:40 Nucleat RBC Rel Count 0.0 % (0.0-0.2) 12/06/17 04:40 Absolute Neuts (auto) 3.38 10^3/uL (1.70-6.50) 12/06/17 04:40 Absolute Lymphs (auto) 1.23 10^3/uL (1.00-3.00) 12/06/17 04:40 Absolute Monos (auto) 0.75 10^3/uL (0.30-0.80) 12/06/17 04:40 Absolute Eos (auto) 0.24 10^3/uL (0.03-0.40) 12/06/17 04:40 Absolute Basos (auto) 0.05 10^3/uL (0.02-0.10) 12/06/17 04:40 Absolute Nucleated RBC 0.00 10^3/uL (0-0.01) 12/06/17 04:40 Immature Gran % 0.2 % (0.0-1.1) 12/06/17 04:40 Immature Gran # 0.01 10^3/uL (0.00-0.10) 12/06/17 04:40 D-Dimer 0.63 ug/mLFEU (0.00-0.50) H 12/05/17 16:00 Sodium 139 mEq/L (135-145) 12/06/17 04:40 Potassium 4.0 mEq/L (3.3-5.0) 12/06/17 04:40 Chloride 101 mEq/L (97-110) 12/06/17 04:40 Carbon Dioxide 31 mEq/l (22-31) 12/06/17 04:40 Anion Gap 7 mEq/L (6-14) 12/06/17 04:40 BUN 24 mg/dL (7-23) H 12/06/17 04:40 Creatinine 1.0 mg/dL (0.7-1.3) 12/06/17 04:40 Estimated GFR > 60 12/06/17 04:40 Glucose 102 mg/dL (70-100) H 12/06/17 04:40 Calcium 8.8 mg/dL (8.5-10.4) 12/06/17 04:40 POC Troponin I 0.00 ng/mL (0.00-0.08) 12/05/17 16:33 Troponin I < 0.012 ng/mL (0.000-0.034) 12/06/17 04:40 NT-Pro-B Natriuret Pep 1090 pg/mL (0-125) H 12/05/17 16:00 TSH 3.190 uIU/mL (0.465-4.680) 12/06/17 04:40 A/P Plan: Addendum S Alexis - Agree with plan. Defer JENNY CV for 24-48 hrs depending on clinical situation
--- NOTE | 2017-12-06 12:16 | ASMTCMCOM ---
CM Note CM Note Notes: 12/06/2017 Case Management Note Met pt during rounds this morning. Pt admitted for acute pulmonary edema r/t heart failure with reported 35 pound weight gain. Lasix has been started. Transitional Care is following patient. There are no therapy evals ordered at this time. Pt has strong family support and is independent with ADL's. Case Management d/c poc: anticipating independent with follow up as directed. Case Management to follow. Date Signed: 12/06/2017 12:15 PM Electronically Signed By:Danita Art RN
[2017-12-06] MEDS: FUROSEMIDE 40 MG/4 ML VIAL IVP SCH (14:36)
[2017-12-06] MEDS ORDERED: RIVAROXABAN 10 MG TAB PO SCH (18:00)
[2017-12-06] MEDS: DILTIAZEM XR 240 MG CAP PO SCH (20:37)
[2017-12-06] MEDS: DILTIAZEM CD 120 MG CAP PO SCH (20:39)
[2017-12-06] MEDS: ATORVASTATIN CALCIUM 10 MG TAB PO SCH (20:39)
[2017-12-07] MEDS: FUROSEMIDE 40 MG/4 ML VIAL IVP SCH ×2 (08:27→15:29)
[2017-12-07] MEDS: ENOXAPARIN 120 MG/0.8 ML SYR SC SCH ×2 (08:27→20:31)
[2017-12-07] MEDS: PROPAFENONE HCL SR 225 MG CAP PO SCH ×2 (08:27→20:32)
[2017-12-07] MEDS: MULTIVITAMINS 1 EACH TAB PO SCH (08:27)
[2017-12-07] MEDS: NICOTINE 21 MG/24 HR PATCH TD SCH (08:34)
--- NOTE | 2017-12-07 08:57 | PDCARPN ---
Cardiology Progress Note Chief Complaint: AF/SCHF Assessment/Plan: Assessment: 1) persistent AF 2) SCHF 3) atypical cp 4) mild-mod MR 5) anasarca 6) hypoxic respiratory failure 7) RV dysfunction Plan: 1) AF. With his AF, he has had some elevated rates. His home Diltiazem will be continued but change to BB may be considered. He has recently started Rythmol and was to actually have an outpatient DCCV yesterday; however, since he is in heart failure currently, we will try to optimize fluid status prior to undertaking cardioversion. [id number] is 5, and he is appropriately anticoagulated with Xarelto. Will plan for DCCV +/- JENNY tomorrow. 2) SCHF. New problem. Likely related to #1. His Lasix dose was increased yesterday. We discussed this disease process at length today. Will add ACEI today. His fluid status appears improved but he stilll has mild crackles and FILIPE. Will continue IV lasix another day and likely transition to PO lasix tomorrow. After addition of Lisinopril if BP tolerates, we will transition from CCB to BB tomorrow. 3) atypical cp. Troponins negative. Last stress MPI is from our office dated which showed normal perfusion. Will defer any invasive testing at this time. 4) Mild-mod MR. This can be followed with routine echoes. 5) anasarca. Down 6 kg from yesterday. 6) hypoxic respiratory failure. He still desaturates on room air. Continue supplemental O2. 7) RV dysfunction. Will plan on referral to sleep clinic. 12/07/17 09:03 Subjective: Feels improved. Was able to walk around the floor. Objective: Vital Signs (8 Hrs) Temp Pulse Resp BP Pulse Ox 12/07/17 08:36 97.6 F 83 13 139/76 H 94 12/07/17 03:33 97.9 F 81 14 119/79 94 Intake/Output (24 Hrs) 12/06/17 12/07/17 12/08/17 05:59 05:59 05:59 Intake Total 670 1750 Output Total 1150 5500 Balance -480 -3750 Intake: Oral (ml) 670 1750 Output: Urine (ml) 1150 5500 Toilet 300 2950 Urinal 850 2550 Other: Weight 126 kg 124.874 kg 120.9 kg Output Comment Toilet pt refuses urinal Number of Voids Toilet 1 1 Urinal 1 2 Result Diagrams: 12/06/17 04:40 12/07/17 03:17 Cardiac Labs: Cardiac Lab Results (72 Hrs) 12/06/17 12/05/17 04:40 22:40 Troponin I < 0.012 < 0.012 Telemetry: AF some V paced beats - Physical Exam Constitutional: healthy appearing Eyes: EOMI, anicteric sclera Ears, Nose, Mouth, Throat: moist mucous membranes Cardiovascular: systolic murmur, irregularly irregular Respiratory: clear to auscultate bilat, inspiratory crackles (L base) Gastrointestinal: normoactive bowel sounds, no tenderness Genitourinary: No smith in urethra Skin: no rashes, no abrasions, warm, other (1+ edema) Neurologic: AAOx3 Psychiatric: cooperative, interactive ICD10 Worksheet Patient Problems: Problems Problem Status Onset CHF (congestive heart failure) Acute chronic disease mgmt/transitional care Acute Atrial fibrillation Acute Fatigue Acute Pre-syncope Acute Shortness of breath Acute
[2017-12-07] MEDS: LISINOPRIL 5 MG TAB PO SCH (10:15)
[2017-12-07] MEDS ORDERED: CANN-EASE 2 GM TUBE TP PRN (15:43)
--- NOTE | 2017-12-07 17:26 | HOSPPROG ---
Hospitalist Progress Note Assessment/Plan: * Persistent afib - PCM -cardioversion in am once volume status improved -rate controlled on diltiazem, on propafenone -on Xarelto at home - currently SQ Lovenox * Acute on chronic systolic CHF - EF 40% -IV lasix -ACEI added * Chest pain -stress test 06/08 negative * Obesity BMI 39 -needs outpatient sleep study Subjective: Feeling much better with diuresis Objective: Vital Signs Temp Pulse Resp BP Pulse Ox 36.8 C 81 11 L 115/75 93 12/07/17 15:40 12/07/17 15:40 12/07/17 15:40 12/07/17 15:40 12/07/17 15:40 Laboratory Results 12/06/17 04:40 12/07/17 03:17 12/06/17 12/07/17 12/08/17 05:59 05:59 05:59 Intake Total 670 1750 500 Output Total 1150 5500 4305 Balance -810 -0961 -9107 ECHO reviewed - EF 40% CXR viewed, my personal interpretation is - CHF - Physical Exam Constitutional: no apparent distress, appears nourished, not in pain Cardiovascular: regular rate and rhythym, no murmur, rub, or gallop, edema (2-3+ ) Respiratory: no respiratory distress, no rales or rhonchi, clear to auscultation Gastrointestinal: normoactive bowel sounds, soft, non-tender abdomen, no palpable masses Skin: no rashes or abrasions, no fluctuance, no induration Neurologic: AAOx3, sensation intact bilaterally Psychiatric: interacting appropriately, not anxious, not encephalopathic, thought process linear ICD10 Worksheet Patient Problems: Problems Problem Status Onset chronic disease mgmt/transitional care Acute Pre-syncope Acute Shortness of breath Acute Fatigue Acute Atrial fibrillation Acute CHF (congestive heart failure) Acute
[2017-12-07] MEDS: ATORVASTATIN CALCIUM 10 MG TAB PO SCH (20:31)
[2017-12-07] MEDS: DILTIAZEM XR 240 MG CAP PO SCH (20:31)
[2017-12-07] MEDS: DILTIAZEM CD 120 MG CAP PO SCH (20:31)
[2017-12-08 04:09] LABS: INR 1.07 (0.83-1.16); PROTIME(PATIENT) 14.1 SEC (12.0-15.0)
[2017-12-08] MEDS ORDERED: NS 1,000 ML IV ONE (06:00)
[2017-12-08] MEDS ORDERED: ATROPINE SULFATE 1 MG/10 ML SYR IVP ONE (06:00)
[2017-12-08] MEDS: LISINOPRIL 5 MG TAB PO SCH (08:04)
[2017-12-08] MEDS: PROPAFENONE HCL SR 225 MG CAP PO SCH ×2 (08:04→20:41)
[2017-12-08] MEDS: ENOXAPARIN 120 MG/0.8 ML SYR SC SCH (08:04)
[2017-12-08] MEDS: MULTIVITAMINS 1 EACH TAB PO SCH (08:04)
[2017-12-08] MEDS: NICOTINE 21 MG/24 HR PATCH TD SCH (08:05)
[2017-12-08] MEDS: FUROSEMIDE 40 MG/4 ML VIAL IVP SCH (08:05)
[2017-12-08] MEDS ORDERED: ATROPINE SULFATE 1 MG/10 ML SYR ONE (10:43)
--- NOTE | 2017-12-08 10:52 | PDHPUP ---
History & Physical Update H&P update statement: This history and physical update is based on an assessment of the patient which was completed after admission or registration (within 24 hours), but prior to the surgery/procedure.ok no changes H&P update: H&P reviewed & patient examined, no change in patient's condition since H&P completed H&P changes: no changes on h/p
[2017-12-08] MEDS ORDERED: PROPOFOL 200 MG/20 ML VIAL ONE (10:53)
[2017-12-08] MEDS ORDERED: MIDAZOLAM 2 MG/2 ML VIAL ONE (10:53)
--- NOTE | 2017-12-08 11:16 | PDTEE1 ---
JENNY Cardioversion Procedure Procedure: transesophageal echo Indications: atrial fibrillation Consent: signed and in chart Anticoagulation: xarelto Procedural Details: Pads were placed in anterior-posterior position. JENNY probe was advanced and standard images obtained. There is no evidence of left atrial or left atrial appendage thrombus. Synchronized cardioversion attempt #1: 200J Synchronized cardioversion attempt #2: other (250 j) Results: other (a- paced v-sensed rhthym) Conclusions: successful JENNY cardioversion Conclusion Comment: 1. continue current meds and f/u withdr suzan post d/c Patient Problems: Problems Problem Status Onset CHF (congestive heart failure) Acute chronic disease mgmt/transitional care Acute Atrial fibrillation Acute Fatigue Acute Pre-syncope Acute Shortness of breath Acute
--- NOTE | 2017-12-08 11:54 | CPEKG ---
Test Reason : OPEN Blood Pressure : / mmHG Vent. Rate : 089 BPM Atrial Rate : 087 BPM P-R Int : 099 ms QRS Dur : 083 ms QT Int : 391 ms P-R-T Axes : 255 218 059 degrees QTc Int : 476 ms Ventricular-paced complexes Low voltage, extremity leads Underlying atrial fibrillation Confirmed by Michael Tillman ([id number]) on 12/08/2017 11:53:29 AM Referred By: Confirmed By:Michael Tillman
--- NOTE | 2017-12-08 13:31 | PDCARPN ---
Cardiology Progress Note Chief Complaint: SCHF/AF Assessment/Plan: Assessment: 1) persistent AF 2) SCHF 3) atypical cp 4) mild-mod MR 5) anasarca 6) hypoxic respiratory failure 7) RV dysfunction Plan: 1) AF. With his AF, he has had some elevated rates. His home Diltiazem will be continued but change to BB may be considered in outpatient setting. He has recently started Rythmol and was to actually have an outpatient DCCV a couple of days ago. [id number] is 5, and he is appropriately anticoagulated with Xarelto. He proceeded to JENNY-guided DCCV today and appears to be maintaining SR currently. 2) SCHF. New problem. Likely related to #1. Will transition to PO lasix today as he has diuresed 20 lbs. ACEI has been added in this admission 3) atypical cp. Troponins negative. Last stress MPI is from our office dated which showed normal perfusion. Will defer any invasive testing at this time. 4) Mild-mod MR. This can be followed with routine echoes. 5) anasarca. Improved and appears mostly euvolemic. 6) hypoxic respiratory failure. He still desaturates on room air. Continue supplemental O2. 7) RV dysfunction. Will plan on referral to sleep clinic. 12/08/17 13:34 Subjective: Feels well. Breathing improved. Feels ready for D/C. Objective: Vital Signs (8 Hrs) Temp Pulse Resp BP Pulse Ox 12/08/17 12:00 97.9 F 73 13 116/67 85 L 12/08/17 08:00 95 12/08/17 07:45 97.7 F 89 16 115/77 96 Intake/Output (24 Hrs) 12/07/17 12/08/17 12/09/17 05:59 05:59 05:59 Intake Total 1750 950 Output Total 5500 4375 800 Balance -3750 -3425 -800 Intake: Oral (ml) 1750 950 Output: Urine (ml) 5500 4375 800 Toilet 2950 3500 800 Urinal 2550 875 Other: Weight 124.874 kg 117.1 kg Intake Quantity Yes Sufficient Number of Voids Toilet 1 Urinal 2 Result Diagrams: 12/06/17 04:40 12/08/17 03:20 Cardiac Labs: Cardiac Lab Results (72 Hrs) 12/06/17 12/05/17 04:40 22:40 Troponin I < 0.012 < 0.012 Telemetry: A-paced V-sensed - Physical Exam Constitutional: healthy appearing, no apparent distress Eyes: PERRL, anicteric sclera Ears, Nose, Mouth, Throat: moist mucous membranes Cardiovascular: regular rate and rhythm, no murmurs Respiratory: clear to auscultate bilat, no crackles Gastrointestinal: normoactive bowel sounds, no tenderness Genitourinary: No smith in urethra Neurologic: AAOx3 Psychiatric: cooperative, interactive ICD10 Worksheet Patient Problems: Problems Problem Status Onset chronic disease mgmt/transitional care Acute Pre-syncope Acute Shortness of breath Acute Fatigue Acute Atrial fibrillation Acute CHF (congestive heart failure) Acute
[2017-12-08] MEDS: FUROSEMIDE 20 MG TAB PO SCH (14:47)
[2017-12-08] MEDS: CARVEDILOL 25 MG TAB PO SCH (18:43)
[2017-12-08] MEDS ORDERED: RIVAROXABAN 20 MG TAB PO SCH (20:15)
--- NOTE | 2017-12-08 20:15 | HOSPPROG ---
Hospitalist Progress Note Assessment/Plan: * Persistent afib - PCM -s/p cardioversion -change diltiazem to coreg -on propafenone -resume Xarelto * Acute on chronic systolic CHF - EF 40% -IV lasix - now on PO -ACEI added * Chest pain -stress test 06/08 negative * Obesity BMI 39 -needs outpatient sleep study Subjective: NO new complaints, anxious for discharge Objective: Vital Signs Temp Pulse Resp BP Pulse Ox 36.8 C 74 16 131/82 H 95 12/08/17 19:44 12/08/17 19:44 12/08/17 19:44 12/08/17 19:44 12/08/17 19:44 Laboratory Results 12/06/17 04:40 12/08/17 03:20 12/07/17 12/08/17 12/09/17 05:59 05:59 05:59 Intake Total 1750 950 480 Output Total 5500 4375 800 Balance -3750 -3425 -320 PT 14.1 SEC (12.0-15.0) 12/08/17 03:20 INR 1.07 (0.83-1.16) 12/08/17 03:20 EKG viewed, my personal interpretation is - paced rhythm d/w Rafaela Babin regarding discharge plan - Physical Exam Constitutional: no apparent distress, appears nourished, not in pain Cardiovascular: regular rate and rhythym, no murmur, rub, or gallop, edema (1+) Respiratory: no respiratory distress, no rales or rhonchi, clear to auscultation Gastrointestinal: normoactive bowel sounds, soft, non-tender abdomen, no palpable masses Skin: no rashes or abrasions, no fluctuance, no induration Neurologic: AAOx3, sensation intact bilaterally Psychiatric: interacting appropriately, not anxious, not encephalopathic, thought process linear ICD10 Worksheet Patient Problems: Problems Problem Status Onset chronic disease mgmt/transitional care Acute Pre-syncope Acute Shortness of breath Acute Fatigue Acute Atrial fibrillation Acute CHF (congestive heart failure) Acute
[2017-12-08] MEDS: ATORVASTATIN CALCIUM 10 MG TAB PO SCH (20:41)
[2017-12-09 07:39] VITALS: BP 141/84
[2017-12-09] MEDS: PROPAFENONE HCL SR 225 MG CAP PO SCH (07:58)
[2017-12-09] MEDS: LISINOPRIL 5 MG TAB PO SCH (07:59)
[2017-12-09] MEDS: MULTIVITAMINS 1 EACH TAB PO SCH (07:59)
[2017-12-09] MEDS: FUROSEMIDE 20 MG TAB PO SCH (07:59)
[2017-12-09] MEDS: CARVEDILOL 25 MG TAB PO SCH (07:59)
[2017-12-09] MEDS: NICOTINE 21 MG/24 HR PATCH TD SCH (08:10)
--- NOTE | 2017-12-09 09:12 | CPEKG ---
Test Reason : OPEN Blood Pressure : / mmHG Vent. Rate : 084 BPM Atrial Rate : 142 BPM P-R Int : 067 ms QRS Dur : 079 ms QT Int : 347 ms P-R-T Axes : 000 111 042 degrees QTc Int : 411 ms Atrial-sensed ventricular-paced complexes Low voltage, extremity leads Underlying atrial fibrillation Confirmed by Michael Tillman ([id number]) on 12/09/2017 9:12:23 AM Referred By: Confirmed By:Michael Tillman
--- NOTE | 2017-12-09 09:15 | CPEKG ---
Test Reason : OPEN Blood Pressure : / mmHG Vent. Rate : 070 BPM Atrial Rate : 070 BPM P-R Int : 240 ms QRS Dur : 081 ms QT Int : 421 ms P-R-T Axes : 083 -77 201 degrees QTc Int : 455 ms Atrial-paced complexes Prior ECG with atrial fib/flutter and Ventricular pacing, but this ECG with atrial pacing alone Confirmed by Michael Tillman ([id number]) on 12/09/2017 9:15:12 AM Referred By: Confirmed By:Michael Tillman
--- NOTE | 2017-12-09 10:22 | PDCARPN ---
Cardiology Progress Note Chief Complaint: AF/SCHF Assessment/Plan: Assessment: 1) persistent AF 2) SCHF 3) atypical cp 4) mild-mod MR 5) anasarca 6) hypoxic respiratory failure 7) RV dysfunction Plan: 1) AF. With his AF, he has had some elevated rates. His home Diltiazem will be continued but change to BB may be considered in outpatient setting. He has recently started Rythmol and was to actually have an outpatient DCCV a couple of days ago. [id number] is 5, and he is appropriately anticoagulated with Xarelto. He proceeded to JENNY-guided DCCV yesterday and appears to be maintaining SR currently. 2) SCHF. New problem. Likely related to #1. Will transition to PO lasix today as he has diuresed 20 lbs. ACEI has been added in this admission. Changed from Dilt to Carvedilol. We discussed BP and weight monitoring and when to call. 3) atypical cp. Troponins negative. Last stress MPI is from our office dated which showed normal perfusion. Will defer any invasive testing at this time. 4) Mild-mod MR. This can be followed with routine echoes. 5) anasarca. Improved and appears mostly euvolemic. 6) hypoxic respiratory failure. He is currently on 1 lpm supplemental O2. Needs RA challenge. 7) RV dysfunction. Will plan on referral to sleep clinic. 12/09/17 10:17 Subjective: Feels OK. Breathing improved. Reviewed/Discussed With: hospitalist (Dr. Chester) Objective: Vital Signs (8 Hrs) Temp Pulse Resp BP Pulse Ox 12/09/17 07:39 98.1 F 70 18 141/84 H 96 12/09/17 04:00 97.9 F 73 16 115/80 96 Intake/Output (24 Hrs) 12/08/17 12/09/17 12/10/17 05:59 05:59 05:59 Intake Total 950 780 Output Total 4375 1600 Balance -3425 -820 Intake: Oral (ml) 950 780 Output: Urine (ml) 4375 1600 Toilet 3500 800 Urinal 875 800 Other: Weight 117.1 kg 117.299 kg Intake Quantity Yes Sufficient Number of Voids Urinal 1 Number of Stools Toilet 1 Result Diagrams: 12/06/17 04:40 12/09/17 03:02 Telemetry: SR/ Some V paced - Physical Exam Constitutional: no apparent distress Eyes: PERRL, anicteric sclera Ears, Nose, Mouth, Throat: moist mucous membranes Cardiovascular: regular rate and rhythm, no murmurs Respiratory: clear to auscultate bilat, no crackles Gastrointestinal: normoactive bowel sounds, no tenderness Neurologic: AAOx3 Psychiatric: cooperative, interactive ICD10 Worksheet Patient Problems: Problems Problem Status Onset CHF (congestive heart failure) Acute chronic disease mgmt/transitional care Acute Atrial fibrillation Acute Fatigue Acute Pre-syncope Acute Shortness of breath Acute
--- NOTE | 2017-12-09 17:05 | GDS ---
DISCHARGE DIAGNOSES: 1. Atrial fibrillation status post cardioversion. 2. Pacemaker. 3. Acute on chronic systolic congestive heart failure. Ejection fraction 40%. 4. Chest pain with recent negative stress test. 5. Obesity, body mass index 39. HISTORY: This is a 72-year-old male who presented with rapid atrial fibrillation. He does have a pa cemaker in place. He underwent cardioversion and is in a normal sinus rhythm at the time of discharg e. During this hospitalization he has been started on Coreg and propafenone and his diltiazem was di scontinued. He is on chronic anticoagulation with Xarelto. He is also found to have some mild congestive heart failure systolic and was pretty significantly diu resed with IV Lasix as he was massively volume overloaded on presentation. We will now discharge on oral Lasix and an BRIONNA inhibitor has been initiated. It is highly suspicion this patient has obstructive sleep apnea. We are recommending an outpatient s leep study. DISCHARGE MEDICATIONS: Please see computer record for full detailed list. New medications: 1. Coreg 12.5 mg p.o. twice daily. 2. Lasix 20 mg p.o. twice daily. 3. Lisinopril 5 mg p.o. daily. Continued medications will include his Xarelto and propafenone. Discontinued medications are all dil tiazem products. ADDITIONAL DISCHARGE INSTRUCTIONS: 1. Follow up scheduled with Dr. Adilson Blanca on December 16, 2017. 2. Outpatient sleep study. 3. Greater than 30 minutes' time spent arranging this discharge. Patient seen and examined by me on the day of discharge. /[id number]/MODL
--- NOTE | 2017-12-13 14:41 | POSTANESTH ---
Post Anesthetic Evaluation Cardiovascular Status: Normal, Stable Respiratory Status: Normal, Stable, Similar to Pre-op Cond. Level of Consciousness/Mental Status: Can Participate in Eval Pain Control: Adequate, Prn Tx Ordered Nausea/Vomiting Control: Adequate, Prn Tx Ordered Complications Possibly Related to Anesthesia: None Noted
--- NOTE | 2017-12-13 22:03 | PQFORM ---
PHYSICIAN QUERY FORM Needs Your Response This query form is being sent to you to assure this patient record is coded properly. Please respond to the question below: COYOTE HUNTER QUESTION: Dr Chester Progress Notes mention Acute Hypoxic Respiratory Failure however there is no mention of this in the Discharge Summary. Did this patient have AHRF? _x__ Yes ___ No ___ Other (Please specify ) ___ Unable to Determine Thank You Susan RIVAS [employer] INSTRUCTIONS FOR RESPONSE: Answer question by clicking on the "Edit Document" button. Move cursor to area below the stars. When complete, hit "Save." Click on the "Sign" button, then click "Sign" again. Type in your PIN and hit "Enter." MTDD
== END 2017-12-09 10:52 | disposition home or self-care (01) | DRG 291 ==
LOC: F2W 17:30
PROVIDERS: ADMIT Internal Medicine; ATTEND Internal Medicine
DX: I11.0 Hypertensive heart disease with heart failure (principal); I50.21 Acute systolic (congestive) heart failure; I48.1 Persistent atrial fibrillation; J96.01 Acute respiratory failure with hypoxia; R07.89 Other chest pain; G47.33 Obstructive sleep apnea (adult) (pediatric); E78.5 Hyperlipidemia, unspecified; I34.0 Nonrheumatic mitral (valve) insufficiency; E66.9 Obesity, unspecified; Z68.39 Body mass index [BMI] 39.0-39.9, adult; Z86.73 Personal history of transient ischemic attack (TIA), and cerebral infarction without residual deficits; Z79.01 Long term (current) use of anticoagulants; Z95.0 Presence of cardiac pacemaker; Z87.891 Personal history of nicotine dependence
CPT/HCPCS: 84484-PO; 96374; J0461; J1650; J1940; J2250; J2704